=== PATIENT | female | born 1995 | race Caucasian/White ===

== ENCOUNTER 2020-03-15 07:27 | Outpatient (CLI) | payer BC, SELFPAY ==
[2020-03-15 08:14] LABS: Cholesterol 149 mg/dL (0-200); HDL Direct 33 mg/dL; Triglycerides 148 mg/dL (<150)
[2020-03-15 09:54] LABS: LDL Cholesterol Direct 94 mg/dL
[2020-03-18 04:12] LABS: Insulin Level Total 39.7 uIU/mL (<=19.6)
[2020-03-19 14:14] LABS: DHEA-Sulfate 207 mcg/dL (18-391)
[2020-03-19 16:03] LABS: Testosterone Total 30 ng/dL (2-45)
[2020-03-21 05:24] LABS: FSH 5.1 mIU/mL (***); LH 3.8 mIU/mL (***)
== END 2020-03-15 07:28 | disposition home or self-care (01) ==
LOC: ANHLAB 07:29
PROVIDERS: Visit Provider Obstetrics & Gynecology
DX: N92.6 Irregular menstruation, unspecified (principal)
CPT/HCPCS: 36415; 80061; 82627; 83001; 83002; 83525; 84403; 84436; 84443

== ENCOUNTER 2020-03-22 14:39 | Outpatient (CLI) | payer BC, SELFPAY ==
--- NOTE | ~2020-03-22 | US_ITS ---
EXAMINATION: US pelvic complete w TV DATE: 03/22/2020 15:23 INDICATION: Encounter for insertion of intrauterine contraceptive device. TECHNIQUE: Multiple transabdominal and transvaginal sonographic images of the pelvis were obtained. COMPARISON: None. FINDINGS: TRANSABDOMINAL ULTRASOUND: The uterus measures 7.4 x 2.2 x 3.9 cm. There is no free fluid in the pelvis. TRANSVAGINAL ULTRASOUND: The endometrial complex measures 5 mm in thickness. There is an intrauterine device in the lower uter ine segment. The right ovary measures 3.3 x 2.2 x 2.7 cm. The left ovary is not visualized. IMPRESSION: 1. Intrauterine device in abnormally low position. Reviewed, dictated and finalized at location A.
== END 2020-03-22 14:40 | disposition home or self-care (01) ==
PROVIDERS: Visit Provider Obstetrics & Gynecology
DX: Z30.430 Encounter for insertion of intrauterine contraceptive device (principal); T83.32XA Displacement of intrauterine contraceptive device, initial encounter
CPT/HCPCS: 76830; 76856

== ENCOUNTER 2020-05-01 07:37 | Outpatient (CLI) | payer BC, SELFPAY ==
[2020-05-01 08:16] LABS: Hemoglobin A1C 5.4 % (<5.7)
== END 2020-05-01 07:38 | disposition home or self-care (01) ==
PROVIDERS: Visit Provider Obstetrics & Gynecology
DX: N92.6 Irregular menstruation, unspecified (principal)
CPT/HCPCS: 36415; 83036

== ENCOUNTER 2020-06-26 13:21 | Emergency (ER) | payer BC, SELFPAY ==
--- NOTE | ~2020-06-26 | XR_ITS ---
EXAMINATION: XR chest 2V DATE: 06/26/2020 14:26 INDICATION: Chest pain. TECHNIQUE: Frontal and lateral views of the chest were obtained. COMPARISON: Chest single view 11/29/2019 FINDINGS: The chest demonstrates clear lungs without pneumonia, pleural effusion, or pneumothorax. Th e heart size is normal. Surgical clips in the right upper quadrant are likely from cholecystectomy. IMPRESSION: 1. No acute cardiopulmonary disease. Reviewed, dictated and finalized at location A. LE CHIPPER
--- NOTE | 2020-06-26 13:22 | ECG_ITS ---
Measurements Intervals [place] Rate: 109 P: 48 MO: 136 QRS: 26 QRSD: 98 T: 1 QT: 327 QTc: 442 Interpretive Statements SINUS TACHYCARDIA BORDERLINE ST-T WAVE ABNORMALITY- INFERIOR LEADS ABNORMAL ECG Electronically Signed On 06-26-2020 13:43:38 ADMISSIONS SPECIALIST by Jean Vasquez D.O.
[2020-06-26 13:26] VITALS: BP 144/98; PULSE 113; RESP 26; TEMP 36.1; O2SAT 99
[2020-06-26 13:31] VITALS: PULSE 105
--- NOTE | 2020-06-26 13:36 | ED.CHESTPAIN ---
HPI - Chest Pain General Chief Complaint: Chest Pain Stated Complaint: chest pain and htn Time Seen by Provider: 06/26/20 13:36 Source: patient and family Mode of arrival: ambulatory Limitations: no limitations History of Present Illness HPI narrative: Patient is a 24-year-old female who presents from her place of work for evaluation of chest pain and palpitations. Patient states that she was at work and had finished eating lunch when she suddenly felt her heart beating rapidly. She had some mild, aching chest pain which she states she has intermittently since October 2019. Patient recently moved to this area from [place], [place] and has not established with a primary care physician. She does take control. She had a history of Covid in January but recovered uneventfully and did not require hospitalization. No current chest pain or palpitations in the ER. She states these resolved quite quickly while she was being wheeled over here. Patient works for a [employer] who is located in the hospital. Patient denies any leg swelling or leg pain. No recent car or air travel. Related Data Home Medications Medication Instructions Recorded Confirmed cetirizine 10 mg capsule 10 mg PO DAILY 03/12/20 05/31/20 Allergies Allergy/AdvReac Type Severity Reaction Status Date / Time No Known Allergies Allergy Verified 06/26/20 13:21 Review of Systems Review of Systems: Narrative: CONSTITUTIONAL: Denies fever, chills, or sweats. EYES: Denies visual changes, redness, or discharge. ENT: Denies rhinorrhea, congestion, sore throat, or otalgia. CARDIOVASCULAR: Denies current chest pain, palpitations, or edema. RESPIRATORY: Denies cough or dyspnea. GASTROINTESTINAL: Denies abdominal pain, nausea, vomiting, or diarrhea. GENITOURINARY: Denies dysuria or hematuria. SKIN: Denies rash or itching. MUSCULOSKELETAL: Denies back pain, joint pain, or myalgia. NEUROLOGIC: Denies headache, numbness, or weakness. [facility] Past Medical History Medical History Acid reflux Anxiety Depression Surgical History Surgical History History of cholecystectomy [place] teeth extracted Family History Family History Father Diabetes mellitus Mother Hypertension Social History Social History Smoking status: Never smoker Alcohol intake: current Gender identity (if verbalized by the patient): Female Exam Narrative: Exam Narrative: GENERAL: Awake, alert, conversant HEAD: Normocephalic, atraumatic. EYES: PERRLA and EOMI. ENT: Nares clear, no rhinorrhea or epistaxis. Mucous membranes moist. NECK: Supple. CHEST: No respiratory distress, breathing even and non labored, mild chest wall tenderness HEART: Tachycardia rate, sinus rhythm ABDOMEN:Non distended, non tender EXTREMITIES: Normal range of motion. No edema. No calf swelling or leg pain. SKIN: Warm, dry, no rash. NEURO:No focal deficits. Alert and oriented x3 Course Vital Signs Vital signs: Vital Signs Temperature 36.1 C L 06/26/20 13:26 Pulse Rate 113 H 06/26/20 13:26 Respiratory Rate 26 H 06/26/20 13:26 Blood Pressure 144/98 H 06/26/20 13:26 Pulse Oximetry 99 06/26/20 13:26 Temperature 36.1 C L 06/26/20 13:26 Pulse Rate 110 H 06/26/20 17:14 Respiratory Rate 20 06/26/20 17:14 Blood Pressure 104/81 06/26/20 17:14 Pulse Oximetry 98 06/26/20 17:14 MDM - Chest Pain MDM Narrative Medical decision making narrative: Patient presenting for evaluation of chest pain and palpitations. At the time of assessment, no severe pain. Patient is mildly tachycardic. No hypoxia. No increased work of breathing or signs of respiratory distress. Lungs are clear. No murmurs, rubs or gallops. No calf swelling or calf pain. IV access obtained and labs were
[2020-06-26 14:02] LABS: Basophils Absolute Auto 0.1 K/mm3 (0.0-0.1); Basophils Percent Auto 0.5 % (0.2-1.2); Eosinophils Absolute Auto 0.2 K/mm3 (0-0.3); Eosinophils Percent Auto 1.7 % (0-4.4); Hematocrit 40.7 % (37.0-47.0); Hemoglobin 14.4 g/dL (12.0-15.0); Immature Granulocyte Absolute 0.05 K/mm3 (0.00-0.031); Immature Granulocyte Percent A 0.5 % (0-0.5); Lymphocytes Absolute Auto 3.68 K/mm3 (0.9-3.2); Lymphocytes Percent Auto 37.1 % (18.3-44.2); Mean Corpuscular HGB Conc 35.4 g/dl (32-36); Mean Corpuscular Hemoglobin 29.9 pg (26-34); Mean Corpuscular Volume 84.4 fl (80-100); Monocytes Percent Auto 9.7 % (2.6-8.5); Neutrophils Percent Auto 50.5 % (45.5-73.1); Platelet Count Result 395 k/mm3 (150-375); Red Blood Count 4.82 M/mm3 (4.2-5.4); Red Cell Distribution Width 12.2 % (11.5-14.5); White Blood Count 9.9 K/mm3 (4.5-10.0)
[2020-06-26 14:05] LABS: INR 0.9
[2020-06-26 14:06] LABS: Partial Thromboplastin Time 27.5 SECONDS (22.3-36.8)
[2020-06-26 14:10] LABS: Anion Gap 9 mmol/L (8-16); Blood Urea Nitrogen 9 mg/dL (7-17); Calcium 9.1 mg/dL (8.4-10.2); Carbon Dioxide 23 mmol/L (22-30); Chloride 105 mmol/L (98-107); Estimated CRCL calculation 170 ml/min; Estimated Glomerular Filt Rate > 60; Glucose 116 mg/dL (65-105); Potassium 3.7 mmol/L (3.4-5.0); Sodium 137 mmol/L (137-145)
[2020-06-26 14:21] LABS: Troponin I < 0.012 ng/mL (0.000-0.034)
[2020-06-26 14:23] LABS: D Dimer 0.27 ug/mL (<0.48)
[2020-06-26 14:28] VITALS: BP 160/97; PULSE 107; RESP 16; O2SAT 100
[2020-06-26] MEDS: ASPIRIN 81 MG CHEWABLE TABLET 324 MG PO (14:28)
[2020-06-26 15:28] VITALS: BP 126/65; PULSE 103; RESP 15; O2SAT 100
[2020-06-26 17:08] LABS: Troponin I < 0.012 ng/mL (0.000-0.034)
[2020-06-26 17:14] VITALS: BP 104/81; PULSE 110; RESP 20; O2SAT 98
[2020-06-26 17:35] VITALS: BP 129/81; PULSE 112; RESP 17; O2SAT 99
== END 2020-06-26 17:36 | disposition home or self-care (01) ==
PROVIDERS: Emergency Provider Emergency Medicine; PCP Internal Medicine
DX: R07.89 Other chest pain (principal); Z86.16 Personal history of COVID-19; K21.9 Gastro-esophageal reflux disease without esophagitis; R00.0 Tachycardia, unspecified
CPT/HCPCS: 36415; 71046; 80048; 84484; 85025; 85380; 85610; 85730; 93005; 99284; A9270

== ENCOUNTER → 2020-11-09 01:36 | Outpatient (CLI) | payer BC, SELFPAY ==
[2020-11-09 19:55] LABS: SARS-CoV-2 RNA PCR Negative
== END ==
PROVIDERS: PCP Internal Medicine; Visit Provider Internal Medicine Gastroenterology
DX: Z01.812 Encounter for preprocedural laboratory examination (principal); Z20.822 Contact with and (suspected) exposure to COVID-19
CPT/HCPCS: C9803; U0003; U0005

== ENCOUNTER 2020-11-13 01:37 | Day surgery (SDC) | payer BC, SELFPAY ==
[2020-11-01 13:26] VITALS: BMI 43.1
[2020-11-13 07:43] VITALS: BP 136/104; PULSE 100; RESP 20; TEMP 36.4; O2SAT 99; BMI 42.5
[2020-11-13] MEDS: LACTATED RINGERS 1,000 ML 150 ML IV CONT (07:56)
--- NOTE | 2020-11-13 08:13 | P.PNAN_ITS ---
Anes - Initial Pre Proc Eval Procedure: Operation Date: 11/13/20 08:30 Proposed Procedures p Esophagogastroduodenoscopy - Otoniel Cordon MD Date/Time: 11/13/20 08:13 Surgeon: Otoniel Cordon MD Pre Op Diagnosis: GERD Patient Data Age: 25 Gender: F Height: 5 ft 7 in Weight: 123 kg Last Vital Signs Temp 97.6 F 11/13/20 07:43 Pulse 100 11/13/20 07:43 Resp 20 11/13/20 07:43 BP 136/104 H 11/13/20 07:43 Pulse Ox 99 11/13/20 07:43 Allergies Allergy/AdvReac Type Severity Reaction Status Date / Time No Known Allergies Allergy Verified 11/13/20 07:42 Home Medications Medication Instructions Recorded Confirmed Type norethindrone 1 mg-ethinyl 1 tablet PO DAILY #3 packet 04/26/20 11/13/20 Rx estradiol 10 mcg (24)-iron 10 mcg(2) tablet chuckydha root extract 300 mg 300 mg PO BID cap 10/25/20 11/13/20 History capsule multivitamin 1 tablet PO DAILY 10/25/20 11/13/20 History pantoprazole 40 mg tablet,delayed 40 mg PO BID #180 tablet 10/25/20 11/13/20 Rx release temazepam 30 mg PO DAILY 11/01/20 11/13/20 History atomoxetine 40 mg capsule 40 mg PO DAILY #30 cap 11/08/20 11/13/20 Rx Patient hx anesthesia problems: none Family hx anesthesia problems: none PMFSH Past Medical History Medical History Acid reflux Anxiety Attention Deficit Hyperactivity Disorder (ADHD) Depression Morbid obesity with BMI of 40.0-44.9, adult Sleep disorder Surgical History Surgical History History of cholecystectomy [place] teeth extracted Family History Family History Father Diabetes mellitus Mother Hypertension Social History Social History Smoking status: Never smoker Second hand tobacco smoke exposure: No Alcohol intake: current Drinks per week: 1 Living arrangements: with family Gender identity (if verbalized by the patient): Female Spiritual care concerns: No Anes - Eval Final PreProcedure Day of Procedure 11/13/20 08:13 Patient weight: morbidly obese Heart: regular rate and rhythm Lungs: clear to auscultation Airway: Mallampati scale class II Neurological: alert and oriented Last oral intake: >/= 8 hours ASA classification: III Emergent: no Anesthetic plan: proceed Anesthesia type and monitoring: general GIVS and standard monitoring Informed Consent: The patient's anesthetic plan and its attendant risks and benefits were discussed with the patient/family/POA. Questions were solicited and answers provided to the satisfaction of the patient/family/POA.
--- NOTE | 2020-11-13 08:29 | PM.HPGS ---
History of Present Illness History of Present Illness Consent: Risks, benefits, and alternatives have been discussed and questions answered. Patient agrees to proceed with procedure. Chief complaint: GERD Narrative: Karla Campbell is a 25 year old female with non-cardiac chest pain and gerd, using protonix bid with some relief, never had egd Review of Systems Constitutional: Constitutional: Denies headache(s) and Denies weakness Eyes: Eyes: Denies blurry vision ENT: Reports Normal hearing present, Denies headache(s) and Denies neck pain Cardiovascular: Cardiovascular: Denies chest pain and Denies dyspnea Respiratory: Respiratory: Denies dyspnea Gastrointestinal: Gastrointestinal: Reports no additional gastrointestinal complaints Genitourinary: Genitourinary: Denies dysuria Musculoskeletal: Musculoskeletal: Denies neck pain Integumentary/Breasts: Skin/Breast: Denies dry skin Neurologic: Reports Normal hearing present, Denies headache(s) and Denies weakness Psychiatric: Psychiatric: Denies anxiety Endocrine: Endocrine: Denies change in body appearance Hematologic/Lymphatic: Hematologic/Lymphatic: Denies easy bleeding Allergic/Immunologic: Allergic/Immunologic: Denies urticaria PMFSH Past Medical History Medical History (Updated 11/13/20 @ 08:29 by Otoniel Cordon MD) Acid reflux Anxiety Attention Deficit Hyperactivity Disorder (ADHD) Depression Morbid obesity with BMI of 40.0-44.9, adult Non-cardiac chest pain Sleep disorder Surgical History Surgical History History of cholecystectomy [place] teeth extracted Family History Family History Father Diabetes mellitus Mother Hypertension Social History Social History Smoking status: Never smoker Second hand tobacco smoke exposure: No Alcohol intake: current Drinks per week: 1 Living arrangements: with family Gender identity (if verbalized by the patient): Female Spiritual care concerns: No Meds Home Medications and Allergies Home Medications Medication Instructions Recorded Confirmed Type norethindrone 1 mg-ethinyl 1 tablet PO DAILY #3 packet 04/26/20 11/13/20 Rx estradiol 10 mcg (24)-iron 10 mcg(2) tablet ashwagandha root extract 300 mg 300 mg PO BID cap 10/25/20 11/13/20 History capsule multivitamin 1 tablet PO DAILY 10/25/20 11/13/20 History pantoprazole 40 mg tablet,delayed 40 mg PO BID #180 tablet 10/25/20 11/13/20 Rx release temazepam 30 mg PO DAILY 11/01/20 11/13/20 History atomoxetine 40 mg capsule 40 mg PO DAILY #30 cap 11/08/20 11/13/20 Rx Allergies Allergy/AdvReac Type Severity Reaction Status Date / Time No Known Allergies Allergy Verified 11/13/20 07:42 Vital Signs Vital Signs - 24 hr 11/13/20 07:43 Temperature 97.6 F Pulse Rate 100 Respiratory Rate 20 Blood Pressure 136/104 H Pulse Oximetry 99 Exam Const: General: comfortable and no acute distress HENMT: General nose exam: Normal nares present Eyes: General: appearance normal, both eyes and all related structures Neck: Neck: no JVD Resp: Auscultation: clear to auscultation bilaterally Cardio: Rate: regular rate Rhythm: regular rhythm GI: Inspection: non-distended GI Palp: Yes Soft to palpation Skin: General skin exam: normal color Neuro: General: gait normal Speech: normal speech Extrem: General: normal to inspection Psych: Mental Status: mental status grossly normal Assessment and Plan Assessment and plan (1) Chronic GERD: Code(s): K21.9 - Gastro-esophageal reflux disease without esophagitis Status: Acute Assessment and Plan: egd with bx (2) Non-cardiac chest pain: Code(s): R07.89 - Other chest pain Status: Acute
[2020-11-13] MEDS: BENZOCAINE (*SP) 60 ML SPRAY CAN (HURRICAINE) 1 SPRAY MUCOUS MEM (08:30)
[2020-11-13 08:40] VITALS: BP 140/90; PULSE 103; RESP 24; O2SAT 95
[2020-11-13 08:50] VITALS: BP 143/105; PULSE 85; RESP 23; O2SAT 98
[2020-11-13 09:00] VITALS: BP 139/92; PULSE 84; RESP 84; O2SAT 98
== END 2020-11-13 09:04 | disposition home or self-care (01) ==
PROVIDERS: PCP Internal Medicine; Visit Provider Internal Medicine Gastroenterology
PROC: 0DJ08ZZ Inspection of Upper Intestinal Tract, Via Natural or Artificial Opening Endoscopic (ICD-10-PCS; CPT 43235; principal; 2020-11-13 08:30)
DX: K21.9 Gastro-esophageal reflux disease without esophagitis (principal); K44.9 Diaphragmatic hernia without obstruction or gangrene; F41.9 Anxiety disorder, unspecified; F90.9 Attention-deficit hyperactivity disorder, unspecified type; E66.9 Obesity, unspecified; Z90.49 Acquired absence of other specified parts of digestive tract
CPT/HCPCS: 43239; 88305; J2001; J2704; J7120

== ENCOUNTER 2021-07-02 06:52 | Outpatient (CLI) | payer BC, SELFPAY ==
[2021-07-02 08:36] LABS: Alanine Aminotransferase 37 U/L (4-35); Albumin Level 4.7 g/dL (3.5-5.1); Alkaline Phosphatase 62 U/L (38-126); Anion Gap 10 mmol/L (8-16); Aspartate Amino Transferase 26 U/L (14-36); Bilirubin,Total 0.6 mg/dL (0.2-1.3); Blood Urea Nitrogen 10 mg/dL (7-17); Calcium 9.6 mg/dL (8.4-10.2); Carbon Dioxide 26 mmol/L (22-30); Chloride 104 mmol/L (98-107); Cholesterol 146 mg/dL (0-200); Estimated Glomerular Filt Rate > 60; Glucose 91 mg/dL (65-110); HDL Direct 38 mg/dL; Sodium 140 mmol/L (137-145); Triglycerides 165 mg/dL (<150)
[2021-07-02 08:47] LABS: LDL Cholesterol Direct 79 mg/dL
[2021-07-02 08:58] LABS: Hemoglobin A1C 5.2 % (<5.7)
== END 2021-07-02 06:53 | disposition home or self-care (01) ==
LOC: ANHLAB 06:54
PROVIDERS: PCP Internal Medicine; Visit Provider Nurse Practitioner
DX: E88.81 Metabolic syndrome and other insulin resistance (principal); Z13.220 Encounter for screening for lipoid disorders; G47.9 Sleep disorder, unspecified
CPT/HCPCS: 36415; 80053; 80061; 83036; 84443

== ENCOUNTER 2021-08-14 06:58 | Outpatient (CLI) | payer BC, SELFPAY ==
[2021-08-16 03:25] LABS: Insulin Level Total 29.1 uIU/mL (<=19.6)
[2021-08-16 06:11] LABS: FSH 6.5 mIU/mL (***); LH 7.9 mIU/mL (***); Progesterone 0.5 ng/mL (***); Prolactin 8.6 ng/mL (***)
[2021-08-17 11:15] LABS: Testosterone Total 37 ng/dL (2-45)
== END 2021-08-14 06:59 | disposition home or self-care (01) ==
LOC: ANHLAB 07:00
PROVIDERS: PCP Internal Medicine; Visit Provider Obstetrics & Gynecology
DX: N92.6 Irregular menstruation, unspecified (principal)
CPT/HCPCS: 36415; 83001; 83002; 83525; 84144; 84146; 84403

== ENCOUNTER 2021-12-01 12:16 | Outpatient (CLI) | payer OTHER, SELFPAY ==
[2021-12-01 20:09] LABS: Hemoglobin A1C 5.2 % (<5.7)
[2021-12-03 04:49] LABS: LH 10.6 mIU/mL (***); Progesterone 0.5 ng/mL (***)
[2021-12-04 23:53] LABS: Testosterone Total 33 ng/dL (2-45)
[2021-12-05 06:32] LABS: Insulin Level Total 32.5 uIU/mL (<=19.6)
== END 2021-12-01 12:17 | disposition home or self-care (01) ==
PROVIDERS: PCP Internal Medicine; Visit Provider Obstetrics & Gynecology
DX: N92.1 Excessive and frequent menstruation with irregular cycle (principal); E88.81 Metabolic syndrome and other insulin resistance
CPT/HCPCS: 36415; 83001; 83002; 83036; 83498; 83525; 84144; 84403

== ENCOUNTER 2022-03-30 06:36 | Outpatient (CLI) | payer OTHER, SELFPAY ==
[2022-04-01 15:00] LABS: Progesterone 0.5 ng/mL (***)
== END 2022-03-30 06:37 | disposition home or self-care (01) ==
LOC: ANHLAB 06:38
PROVIDERS: PCP Internal Medicine; Visit Provider Obstetrics & Gynecology
DX: N92.6 Irregular menstruation, unspecified (principal)
CPT/HCPCS: 36415; 84144

== ENCOUNTER 2022-05-25 10:09 | Emergency (ER) | payer OTHER, SELFPAY ==
[2022-05-25 10:51] VITALS: BP 143/87; PULSE 111; RESP 18; TEMP 36.4; O2SAT 98
--- NOTE | 2022-05-25 11:28 | ED.URI ---
HPI - URI/Sore Throat General Chief Complaint: Upper Respiratory Infection Stated Complaint: congestion,sorethroat Time Seen by Provider: 05/25/22 11:21 Source: patient Mode of arrival: ambulatory Limitations: no limitations History of Present Illness HPI Narrative: Patient presents today with a 2 day history of sore throat, rhinorrhea, congestion, bilateral ear pain, headache. Denies shortness of breath or fever. Currently rates her pain 2/10 and has been taking DayQuil, NyQuil, and Mucinex without much relief. Related Data Home Medications Medication Instructions Recorded Confirmed prenat.vits,jose f,lvu-[id number] 1 tablet PO DAILY 10/27/21 05/25/22 Allergies Allergy/AdvReac Type Severity Reaction Status Date / Time No Known Allergies Allergy Verified 05/25/22 10:56 Review of Systems Review of Systems: CONSTITUTIONAL: Denies body aches, fever, chills, or sweats. EYES: Denies visual changes, redness, or discharge. ENT: + congestion, sore throat, rhinorrhea, bilateral ear pain CARDIOVASCULAR: Denies chest pain, palpitations, or edema. RESPIRATORY: Denies cough or dyspnea. GASTROINTESTINAL: Denies abdominal pain, nausea, vomiting, or diarrhea. GENITOURINARY: Denies dysuria or hematuria. SKIN: Denies rash, itching, or wounds. MUSCULOSKELETAL: Denies back pain, joint pain, or myalgia. NEUROLOGIC: Denies numbness, tingling, or weakness.+ headache PSYCH: Denies depression or anxiety. PMFSH Past Medical History Medical History Acid reflux Anxiety Attention Deficit Hyperactivity Disorder (ADHD) Depression Morbid obesity with BMI of 40.0-44.9, adult Non-cardiac chest pain Sleep disorder Surgical History Surgical History History of cholecystectomy [place] teeth extracted Family History Family History Mother Hypertension Father Diabetes mellitus Anxiety Mother Hypertension Grandparent Diabetes mellitus Hypertension Grandparent Heart disease Social History Social History Smoking status: Never smoker Second hand tobacco smoke exposure: No Alcohol intake: current Drinks per week: 1 Substance use: never Substance use type: does not use Lack of Transportation: No Lack of Food: Never True Current Housing: I Have Housing Concerned About Future Housing: No Difficulty Paying Gas/Electric Bills: No Difficulty Paying for Meds: No Currently Unemployed: No Education: Trade/Vocational Certificate Difficulty w/ Childcare or Family Care: No Gender identity (if verbalized by the patient): Female Spiritual care concerns: No Comments At time of signature, I have reviewed and agree with nursing past medical, surgical, social and family history unless otherwise noted. Please see nursing chart for further information. There is no relevant family history pertinent to the presenting complaint Exam Narrative: GENERAL: Well-appearing, well-nourished, and in no acute distress. HEAD: Normocephalic, atraumatic. EYES: EOMI. No redness or drainage. Conjunctivae normal. ENT: Mucous membranes pink and moist. Nares congested. No rhinorrhea. TMs normal bilaterally. Throat mildly erythematous without edema or exudate. Uvula midline. NECK: Normal AROM. Supple. No lymphadenopathy. CHEST: No respiratory distress. Clear to auscultation. HEART: Regular rate and rhythm. No murmur appreciated. Normal peripheral pulses. EXTREMITIES: Normal range of motion. No edema. SKIN: Warm, dry, no rash. Capillary refill normal. Normal skin turgor. NEURO: No focal deficits. Alert and oriented x3. Gait steady. PSYCH: Normal affect. No signs of depression or anxiety. Course Course Level of Care: Express Care Visit Vital Signs Vital signs: Vital Signs Ox
== END 2022-05-25 11:35 | disposition home or self-care (01) ==
PROVIDERS: Emergency Provider Nurse Practitioner; PCP Nurse Practitioner
DX: J06.9 Acute upper respiratory infection, unspecified (principal); K21.9 Gastro-esophageal reflux disease without esophagitis; E66.01 Morbid (severe) obesity due to excess calories; Z68.41 Body mass index [BMI] 40.0-44.9, adult
CPT/HCPCS: 99211; G0463

== ENCOUNTER 2022-05-28 11:59 | Outpatient (CLI) | payer OTHER, SELFPAY ==
[2022-05-31 14:39] LABS: Progesterone 9.5 ng/mL (***)
== END 2022-05-28 12:00 | disposition home or self-care (01) ==
LOC: ANHLAB 11:59
PROVIDERS: PCP Nurse Practitioner; Visit Provider Obstetrics & Gynecology
DX: Z32.01 Encounter for pregnancy test, result positive (principal)
CPT/HCPCS: 36415; 84144; 84702

== ENCOUNTER 2022-05-30 07:09 | Outpatient (CLI) | payer OTHER, SELFPAY | END 2022-05-30 07:10 | disposition home or self-care (01) | PROVIDERS: PCP Nurse Practitioner; Visit Provider Obstetrics & Gynecology | DX: Z32.01 Encounter for pregnancy test, result positive (principal) | CPT/HCPCS: 36415; 84702 ==

== ENCOUNTER 2022-06-04 15:47 | Outpatient (CLI) | payer OTHER, SELFPAY ==
--- NOTE | ~2022-06-04 | US_ITS ---
EXAMINATION: US OB <=14 wk fetus w TV DATE: 06/04/2022 16:57 INDICATION: with inconclusive viability during first trimester TECHNIQUE: Real-time pelvic ultrasound utilizing both a transvaginal and transabdominal probe was pe rformed. The interpreting radiologist was not present for the study. COMPARISON: None. FINDINGS: The uterus measures 7.1 x 3.9 x 4.3 cm. There is an intrauterine gestational sac with a 3 mm yolk sa c but no discernible pole yet evident. The mean sac diameter measures 12 mm, which correlates w ith an estimated gestational age of 6 weeks and 0 days. The right ovary measures 3.7 x 2.6 x 2.4 cm. The left ovary measures 4.1 x 2.2 x 2.5 cm. Vascular ana paula w with arterial waveforms identified in both ovaries on color Doppler. There is no free fluid in the pelvis. IMPRESSION: 1. Single intrauterine gestational sac with yolk sac but no evident pole which could be due to early stage of . 2. Gestational age by ultrasound based upon mean sac diameter of 6 weeks 0 day(s) +/- 4 day(s) with ultrasound estimated date of delivery (BONNY) of 01/28/2023. Reviewed, dictated and finalized at location A. ING HOUSE SUPERVISOR IMPRESSION: 1. Single intrauterine gestational sac with yolk sac but no evident pole which could be due to early stage of . 2. Gestational age by ultrasound based upon mean sac diameter of 6 weeks 0 day (s) +/- 4 day(s) with ultrasound estimated date of delivery (BONNY) of 01/28/2023.
== END 2022-06-04 15:48 | disposition home or self-care (01) ==
LOC: ANHIMG 15:49
PROVIDERS: PCP Nurse Practitioner; Visit Provider Obstetrics & Gynecology
DX: O36.80X0 Pregnancy with inconclusive fetal viability, not applicable or unspecified (principal); Z3A.01 Less than 8 weeks gestation of pregnancy
CPT/HCPCS: 76801; 76817

== ENCOUNTER 2022-06-24 08:04 | Outpatient (CLI) | payer OTHER, SELFPAY ==
[2022-06-26 09:35] LABS: PCP NEGATIVE ng/mL (<25)
[2022-06-30 14:26] LABS: Marijuana Metabolites Negative
[2022-06-30 14:27] LABS: Amphetamines Negative; Barbiturates Negative; Benzodiazepines Negative; Cocaine Metabolites Negative
== END 2022-06-24 08:05 | disposition home or self-care (01) ==
LOC: ANHLAB 08:05
PROVIDERS: PCP Nurse Practitioner; Visit Provider Nurse Practitioner
DX: Z51.81 Encounter for therapeutic drug level monitoring (principal); Z79.899 Other long term (current) drug therapy
CPT/HCPCS: 80307

== ENCOUNTER 2022-06-29 15:30 | Outpatient (CLI) | payer OTHER, SELFPAY ==
--- NOTE | ~2022-06-29 | US_ITS ---
EXAMINATION: US OB <=14 wk fetus w TV DATE: 06/29/2022 19:03 INDICATION: viability assessment during first trimester TECHNIQUE: Real-time pelvic transabdominal and transvaginal ultrasound was performed. COMPARISON: 06/04/2022 FINDINGS: The uterus measures 9.1 x 5.6 x 6.6 cm. There is an intrauterine gestational sac. There is a 13 mm x 7 mm fluid collection adjacent to the gestational sac. A yolk sac is identified. hea rt motion is identified measuring 171 beats per minute (bpm) by M-mode Doppler. The crown rump length measures 2.5 cm, which correlates with an estimated gestational age of 9 weeks and 1 day(s) (+ /-) 6 day(s). The right ovary measures 3.2 x 2.1 x 2.3 cm. The left ovary measures 4.0 x 1.9 x 1.6 cm. There is nor mal vascular flow in the ovaries. There is no free fluid in the pelvis. IMPRESSION: 1. Live intrauterine with an estimated gestational age of 9 weeks and 1 day(s) (+/-) 6 day( s) and an estimated delivery date of 01/31/2023. 2. Small subchorionic hematoma. Reviewed, dictated and finalized at location L. GE ENTRY CLERK IMPRESSION: 1. Live intrauterine with an estimated gestational age of 9 weeks and 1 day(s) (+/-) 6 day(s) and an estimated delivery date of 01/31/2023. 2. Small subchorionic hematoma.
== END 2022-06-29 15:31 | disposition home or self-care (01) ==
LOC: ANHIMG 15:31
PROVIDERS: PCP Nurse Practitioner; Visit Provider Obstetrics & Gynecology
DX: O36.80X0 Pregnancy with inconclusive fetal viability, not applicable or unspecified (principal); Z3A.09 9 weeks gestation of pregnancy
CPT/HCPCS: 76801; 76817

== ENCOUNTER 2022-07-08 08:56 | Outpatient (CLI) | payer OTHER, SELFPAY ==
[2022-07-08 09:51] LABS: Basophils Percent Auto 0.3 % (0.2-1.2); Eosinophils Absolute Auto 0.1 K/mm3 (0-0.3); Eosinophils Percent Auto 0.9 % (0-4.4); Hemoglobin 13.2 g/dL (12.0-15.0); Immature Granulocyte Absolute 0.03 K/mm3 (0.00-0.031); Immature Granulocyte Percent A 0.3 % (0-0.5); Lymphocytes Absolute Auto 2.21 K/mm3 (0.9-3.2); Mean Corpuscular HGB Conc 33.8 g/dl (32-36); Mean Corpuscular Hemoglobin 28.3 pg (26-34); Mean Corpuscular Volume 83.5 fl (80-100); Mean Platelet Volume 9.1 fl (7.4-10.4); Monocytes Absolute Auto 0.4 K/mm3 (0.1-0.6); Monocytes Percent Auto 4.5 % (2.6-8.5); Neutrophils Absolute Auto 6.1 K/mm3 (1.3-6.7); Platelet Count Result 378 k/mm3 (150-375); Red Blood Count 4.67 M/mm3 (4.2-5.4); Red Cell Distribution Width 12.6 % (11.5-14.5); White Blood Count 8.8 K/mm3 (4.5-10.0)
[2022-07-08 10:13] LABS: Appearance Urine Clear (Clear); Bilirubin Urine Negative (Negative); Blood Urine Negative (Negative); Color Urine Yellow (Yellow); Glucose Urine UA Negative (Negative); Ketones Urine Negative (Negative); Leukocyte Esterase Ur Negative LEU/UL (NEGATIVE); Nitrate Urine Negative (Negative); Protein Urine Negative (Negative); Specific Grav Ur 1.015 (1.001-1.035); Urobilinogen Urine 0.2 mg/dL (<2.0)
[2022-07-08 10:20] LABS: Vitamin D 25 Hydroxy 31.8 ng/mL
[2022-07-08 10:30] LABS: Add Urine Microscopic? NO
[2022-07-08 10:37] LABS: Hepatitis B Surface Antigen Negative (Negative); Rubella IgG Antibody 4.9 IU/ML
[2022-07-08 10:43] LABS: HIV 1/2 Ab P24 Ag Result Negative (Negative)
[2022-07-08 11:56] LABS: Hepatitis C Virus Antibody Negative (Negative)
[2022-07-08 16:51] LABS: Rapid Plasma Reagin Non-Reactive (NonReactive)
[2022-07-13 08:45] LABS: Hemoglobin 13.4 g/dL (11.7-15.5); MCH 28.7 pg (27.0-33.0); MCV 87.8 fL (80.0-100.0); RDW 13.2 % (11.0-15.0); Red Blood Cell Count 4.67 Mill/uL (3.80-5.10)
[2022-07-16 18:53] LABS: CF Result NEGATIVE (NEGATIVE); Ethnicity CAUCASIAN
== END 2022-07-08 08:57 | disposition home or self-care (01) ==
PROVIDERS: PCP Nurse Practitioner; Visit Provider Obstetrics & Gynecology
DX: Z34.90 Encounter for supervision of normal pregnancy, unspecified, unspecified trimester (principal); Z3A.00 Weeks of gestation of pregnancy not specified
CPT/HCPCS: 36415; 81003; 81220; 81243; 82306; 83021; 84443; 85025; 86592; 86703; 86762; 86787; 86803; 86850; 86900; 86901; 87086; 87088; 87340; G0432

== ENCOUNTER 2022-08-14 08:12 | Outpatient (CLI) | payer OTHER, SELFPAY ==
[2022-08-14 10:23] LABS: Hemoglobin A1C 4.9 % (<5.7)
[2022-08-14 10:29] LABS: Glucose 1 Hour PP 50gm Dose 137 mg/dL
== END 2022-08-14 08:13 | disposition home or self-care (01) ==
LOC: ANHLAB 08:14
PROVIDERS: PCP Nurse Practitioner; Visit Provider Obstetrics & Gynecology
DX: Z34.90 Encounter for supervision of normal pregnancy, unspecified, unspecified trimester (principal); Z3A.00 Weeks of gestation of pregnancy not specified
CPT/HCPCS: 36415; 82947; 83036

== ENCOUNTER 2022-08-28 07:57 | Outpatient (CLI) | payer OTHER, SELFPAY ==
[2022-08-28 08:38] LABS: Glucose Fasting Gestational 87 mg/dL (>/=95)
[2022-08-28 10:01] LABS: Glucose 1 Hour Gest 147 mg/dL (>/=180)
[2022-08-28 11:54] LABS: Glucose 2 Hour Gest 176 mg/dL (>/= 155)
[2022-08-28 12:15] LABS: Glucose 3 Hour Gest 107 mg/dL (>/=140)
== END 2022-08-28 07:58 | disposition home or self-care (01) ==
PROVIDERS: PCP Nurse Practitioner; Visit Provider Obstetrics & Gynecology
DX: O99.810 Abnormal glucose complicating pregnancy (principal); Z3A.00 Weeks of gestation of pregnancy not specified
CPT/HCPCS: 36415; 82951; 82952

== ENCOUNTER 2022-09-14 21:10 | Observation (INO) | payer OTHER, SELFPAY ==
--- NOTE | 2022-09-14 21:10 | PC.NURSE ---
Dr Berumen called with orders for patient. IV d5LR bulos 100ml then a continuous d5LR 125 ml/hr. Phenegran 12.5 mg IV PRN GI cocktail IV tylenol 1 mg PRN CBC, CMP Keep overnight and keep NPO after GI cocktail. GI consult in the morning.
[2022-09-14 22:00] VITALS: RESP 16; TEMP 36.5; BMI 39.3
[2022-09-14 22:18] LABS: Hematocrit 38.6 % (37.0-47.0); Hemoglobin 13.3 g/dL (12.0-15.0); Mean Corpuscular HGB Conc 34.5 g/dl (32-36); Mean Corpuscular Hemoglobin 29.4 pg (26-34); Mean Corpuscular Volume 85.2 fl (80-100); Mean Platelet Volume 8.8 fl (7.4-10.4); Platelet Count Result 332 k/mm3 (150-375); Red Blood Count 4.53 M/mm3 (4.2-5.4); Red Cell Distribution Width 13.2 % (11.5-14.5); White Blood Count 15.6 K/mm3 (4.5-10.0)
[2022-09-14] MEDS: BELLADONNA ALK/PHENOB ELIX 10 ML, MAG HYDROX/ALUMINUM HYD/SIMETH 30 ML, LIDOCAINE HCL 2... PO (22:18)
[2022-09-14] MEDS: DEXTROSE 5%/LACTATED RINGERS 1,000 ML 999 ML IV CONT (22:18)
[2022-09-14 22:27] LABS: Alanine Aminotransferase 35 U/L (6-35); Alkaline Phosphatase 67 U/L (38-126); Anion Gap 10 mmol/L (8-16); Aspartate Amino Transferase 22 U/L (14-36); Bilirubin,Total 0.7 mg/dL (0.2-1.3); Blood Urea Nitrogen 6 mg/dL (7-17); Calcium 8.8 mg/dL (8.4-10.2); Carbon Dioxide 19 mmol/L (22-30); Chloride 106 mmol/L (98-107); Estimated Glomerular Filt Rate > 60; Glucose 112 mg/dL (65-110); Potassium 3.4 mmol/L (3.4-5.0); Sodium 135 mmol/L (137-145)
--- NOTE | 2022-09-14 22:30 | OBADM ---
This patient, Karla Campbell, admitted to the OB room OB Post 116 for observation. Patient/family oriented to hospital policies and general routines including ID bracelet, bed and alarms, visiting hours, pain management, procedures, bathroom and other care routines, personal items, smoking policy, room service/diet, and visiting hours. Patient/Family are encouraged to report perceived risks to care and to ask questions if they do not understand what they are told or what they should do.
[2022-09-14] MEDS: PROMETHAZINE HCL 25 MG/ML AMPUL 12.5 MG IV PUSH (22:40)
[2022-09-14 22:59] VITALS: BP 96/54; PULSE 96
[2022-09-14 23:00] VITALS: BP 117/62; PULSE 96
--- NOTE | 2022-09-14 23:11 | PC.NURSE ---
heart tones doppled at 160. Pt denies contractions
--- NOTE | 2022-09-14 23:39 | PC.NURSE ---
Pt vomiting. 200 ml of yellow bile. No blood noted.
[2022-09-14] MEDS: DEXTROSE 5%/LACTATED RINGERS 1,000 ML 125 ML IV CONT (23:52)
--- NOTE | 2022-09-14 23:55 | PC.NURSE ---
Pt continuing to be very nauseous. Called Dr. Berumen. Orders for mg zofran PRN Q4 hours
[2022-09-14] MEDS: ONDANSETRON INJ 4 MG/2 ML VIAL IV PUSH (23:57)
--- NOTE | 2022-09-15 00:50 | PC.NURSE ---
Pt vomiting 100 ml of bile with a few bloody speckles
--- NOTE | 2022-09-15 01:09 | PC.NURSE ---
Spoke with Dr. Berumen about patients unresolved nausea. Orders for suppository compazine 25 mg
[2022-09-15] MEDS: PROCHLORPERAZINE 25 MG SUPP.RECT RECTAL ×3 (01:34→17:48)
--- NOTE | 2022-09-15 01:41 | PC.NURSE ---
150 of dark yellow bile vomited. No blood noted. Small amount of diarrhea.
--- NOTE | 2022-09-15 02:07 | PC.NURSE ---
75 ml of bile vomited with bright red blood speckles in it.
[2022-09-15 02:14] VITALS: TEMP 36.5
[2022-09-15] MEDS: PROMETHAZINE HCL 25 MG/ML AMPUL 12.5 MG IV PUSH (02:30)
[2022-09-15] MEDS: ONDANSETRON INJ 4 MG/2 ML VIAL IV PUSH ×2 (03:51→07:44)
[2022-09-15] MEDS: DEXTROSE 5%/LACTATED RINGERS 1,000 ML 125 ML IV CONT (07:42)
--- NOTE | 2022-09-15 07:59 | PM.IMHP ---
H&P: [facility] History of Present Illness Date/Time: 09/15/22 07:59 Chief Complaint: nausea vomiting abdominal pain Narrative: She is a G1 at 20 weeks who presented with spontaneous upper abdominal pain and nausea after eating a hot dog last afternoon. Pain and nausea persisted at home and emesis. She does have history of severe GERD and has recently been evaluated by GI for hemoptysis. She is on multiple reflux medications. Pain and emesis persisted into the evening and she was admitted. Review of Systems Review of Systems: All systems reviewed & are unremarkable except as noted in HPI and below Constitutional: Constitutional: Reports no additional constitutional complaints Eyes: Eyes: Reports no additional eye complaints Cardiovascular: Cardiovascular: Reports no additional cardiovascular complaints Respiratory: Respiratory: Reports no additional respiratory complaints Gastrointestinal: Gastrointestinal: Reports no additional gastrointestinal complaints Genitourinary: Genitourinary: Reports no additional female genitourinary complaints and Reports as per HPI Integumentary/Breasts: Skin/Breast: Reports system reviewed and no additional complaints, except as docu Neurologic: Reports system reviewed and no additional complaints, except as documented Psychiatric: Psychiatric: Reports no additional psychiatric complaints Hematologic/Lymphatic: Hematologic/Lymphatic: Reports no additional hematologic/lymphatic complaints [facility] Past Medical History Medical History (Updated 09/02/22 @ 10:08 by Yelena Oh APRN) Acid reflux Anxiety Attention Deficit Hyperactivity Disorder (ADHD) Depression Deviated nasal septum Dysphagia GERD (gastroesophageal reflux disease) Hematemesis Morbid obesity with BMI of 40.0-44.9, adult Nausea and vomiting during Non-cardiac chest pain Sleep disorder TMJ (temporomandibular joint disorder) Surgical History Surgical History History of cholecystectomy [place] teeth extracted Family History Family History Mother Hypertension Father Diabetes mellitus Anxiety Mother Hypertension Grandparent Diabetes mellitus Hypertension Grandparent Heart disease Social History Social History Smoking status: Never smoker Second hand tobacco smoke exposure: No Alcohol intake: current Drinks per week: 1 Alcohol use details: not during Substance use: never Substance use type: does not use Lack of Transportation: No Lack of Food: Never True Current Housing: I Have Housing Concerned About Future Housing: No Difficulty Paying Gas/Electric Bills: No Difficulty Paying for Meds: No Currently Unemployed: No Education: Trade/Vocational Certificate Difficulty w/ Childcare or Family Care: No Living arrangements: with family Gender identity (if verbalized by the patient): Female Spiritual care concerns: No Meds Home Medications and Allergies Home Medications Medication Instructions Recorded Confirmed Type pantoprazole 40 mg tablet,delayed 40 mg PO BID #180 tabs 03/23/22 09/14/22 Rx release dextroamphetamine-amphetamine 10 10 mg PO BID #60 tabs 07/08/22 09/14/22 Rx mg tablet (Adderall) vitamins no.85-iron 10 1 cap PO DAILY #30 caps 08/17/22 09/14/22 Rx mg-folate no.1 1 mg-dha 200 mg capsule (Prenate Pixie) sucralfate 1 gram tablet (Carafate) See Rx Instructions .Route 09/07/22 09/14/22 Rx .COMPLEX #120 tabs ondansetron 4 mg disintegrating 4 mg PO Q6H PRN nausea and 09/10/22 09/14/22 Rx tablet vomiting #30 tabs Allergies Allergy/AdvReac Type Severity Reaction Status Date / Time No Known Allergies Allergy Verified 09/14/22 20:53 Vital Signs Vital Signs - 24 hr 09/14/22 22:59 09/14/22 23:00 09/14/22 22:00 T
[2022-09-15 09:05] LABS: Amylase 52 U/L (30-110); Lipase 32 U/L (23-300)
--- NOTE | 2022-09-15 10:03 | PC.NURSE ---
Dr. Peterson professor of communication and writing for Dr. Ramos. Office notified of consult.
--- NOTE | 2022-09-15 13:00 | PC.NURSE ---
Dr. Jaeger at bedside and talked to patient. no procedure needed and okay to go home when pt feels better.
--- NOTE | 2022-09-15 13:03 | PC.NURSE ---
Dr. Berumen at bedside, advanced diet to full liquid. compazine supp every 6 hours ordered
--- NOTE | 2022-09-15 16:18 | PC.NURSE ---
called Dr. Berumen updated pt status. pt is able to keep full liquid down from lunch. Order received to discontinue IV fluid. keep observe if pt can keep food down.
--- NOTE | 2022-09-15 16:48 | WPDGICN ---
Assessment and Plan Assessment and plan (1) Nausea and vomiting during : Code(s): O21.9 - Vomiting of , unspecified Status: Acute Assessment and Plan: continue with antiemetics (2) Hematemesis: Code(s): K92.0 - Hematemesis Status: Acute Assessment and Plan: probably could be esophagitis, MWT but normal h/h i will continue with medical treatment- ppi and carafate. as long as h/h stable no need to proceed with egd plus she is she had egd 2 years ago (3) GERD (gastroesophageal reflux disease): Code(s): K21.9 - Gastro-esophageal reflux disease without esophagitis Status: Acute Assessment and Plan: ppi continue medical treatment (4) : Code(s): Z34.90 - Encounter for supervision of normal , unspecified, unspecified trimester Status: Acute GI Consult Note Consult date/time: 09/15/22 16:48 Reason for consult: n/v, hematemesis HPI: Karla Campbell is a 26 year old female who I met her in 2020 when I performed EGD, only small hiatal hernia, biopsies of esophagus/stomach/duodenum normal (indication was gerd and non cardiac chest pain- already using ppi). She is G1 at 20 weeks. She was just recently in the office because chronic nausea along with vomiting 2-3 times per week, normally acid bile with tinges of bright red blood mixed in.?She was started on carafate and her protonix was increased. She came here because noted again blood in emesis, admitted. Today she is feeling better and no more emesis. Hb 13 (stable). She is feeling better, still nauseous. No melena. Review of Systems Constitutional: Constitutional: Denies chills Eyes: Eyes: Denies blurry vision ENT: Reports Normal hearing present Cardiovascular: Cardiovascular: Denies leg edema Respiratory: Respiratory: Denies cough Gastrointestinal: Gastrointestinal: Reports nausea and Reports vomiting Genitourinary: Genitourinary: Denies hematuria Musculoskeletal: Musculoskeletal: Denies neck pain Neurologic: Denies confusion Psychiatric: Psychiatric: Denies behavioral changes [facility] Past Medical History Medical History (Updated 09/02/22 @ 10:08 by Yelena Oh, MADALYN) Acid reflux Anxiety Attention Deficit Hyperactivity Disorder (ADHD) Depression Deviated nasal septum Dysphagia GERD (gastroesophageal reflux disease) Hematemesis Morbid obesity with BMI of 40.0-44.9, adult Nausea and vomiting during Non-cardiac chest pain Sleep disorder TMJ (temporomandibular joint disorder) Surgical History Surgical History History of cholecystectomy [place] teeth extracted Family History Family History Mother Hypertension Father Diabetes mellitus Anxiety Mother Hypertension Grandparent Diabetes mellitus Hypertension Grandparent Heart disease Social History Social History Smoking status: Never smoker Second hand tobacco smoke exposure: No Alcohol intake: current Drinks per week: 1 Alcohol use details: not during Substance use: never Substance use type: does not use Lack of Transportation: No Lack of Food: Never True Current Housing: I Have Housing Concerned About Future Housing: No Difficulty Paying Gas/Electric Bills: No Difficulty Paying for Meds: No Currently Unemployed: No Education: Trade/Vocational Certificate Difficulty w/ Childcare or Family Care: No Living arrangements: with family Gender identity (if verbalized by the patient): Female Spiritual care concerns: No Meds Home Medications and Allergies Home Medications Medication Instructions Recorded Confirmed Type pantoprazole 40 mg tablet,delayed 40 mg PO BID #180 tabs 03/23/22 09/14/22 Rx release dextroamphetamine-
[2022-09-15 16:54] VITALS: PULSE 105; O2SAT 97
[2022-09-15 16:55] VITALS: BP 125/76; PULSE 104
[2022-09-15 17:01] VITALS: BP 125/76; PULSE 106; RESP 18; TEMP 36.6; O2SAT 97
--- NOTE | 2022-09-28 09:16 | PM.OBTRLD ---
OB - Triage/Final Diagnosis Visit Information Comments/Additional reasons for admission: I have assessed the risk for this patient, Karla Campbell, and determined that she would benefit from observation care. Evaluation Laboratory results: Laboratory Tests 09/14/22 09/14/22 09/15/22 22:10 22:10 08:35 WBC 15.6 H RBC 4.53 Hgb 13.3 Hct 38.6 MCV 85.2 MCH 29.4 MCHC 34.5 RDW 13.2 Plt Count 332 MPV 8.8 Sodium 135 L Potassium 3.4 Chloride 106 Carbon Dioxide 19 L Anion Gap 10 BUN 6 L Creatinine 0.50 L Estim Creat Clear Calc Not Reportable Estimated GFR > 60 Glucose 112 H Calcium 8.8 Total Bilirubin 0.7 AST 22 ALT 35 Alkaline Phosphatase 67 Total Protein 7.0 Albumin 4.0 Amylase 52 Lipase 32 Final Diagnosis (1) Nausea and vomiting during : Code(s): O21.9 - Vomiting of , unspecified Status: Acute (2) Gastroenteritis: Code(s): K52.9 - Noninfective gastroenteritis and colitis, unspecified Status: Acute (3) GERD (gastroesophageal reflux disease): Code(s): K21.9 - Gastro-esophageal reflux disease without esophagitis Status: Acute
== END 2022-09-15 17:45 | disposition home or self-care (01) ==
PROVIDERS: Admitting Provider Obstetrics & Gynecology; PCP Nurse Practitioner; Visit Provider Obstetrics & Gynecology
DX: O21.2 Late vomiting of pregnancy (principal); O26.892 Other specified pregnancy related conditions, second trimester; R10.9 Unspecified abdominal pain; K92.89 Other specified diseases of the digestive system; K21.9 Gastro-esophageal reflux disease without esophagitis; O99.612 Diseases of the digestive system complicating pregnancy, second trimester; K92.0 Hematemesis; Z3A.20 20 weeks gestation of pregnancy; Z79.899 Other long term (current) drug therapy
CPT/HCPCS: 36415; 80053; 82150; 83690; 85027; 96365; 96366; 96375; 96376; A9270; G0378; G0379; J0131; J2405; J2550; J7121

== ENCOUNTER 2022-10-16 07:09 | Outpatient (CLI) | payer OTHER, SELFPAY ==
[2022-10-16 07:43] LABS: Glucose Fasting Gestational 94 mg/dL (>/=95)
[2022-10-16 09:22] LABS: Glucose 1 Hour Gest 170 mg/dL (>/=180)
[2022-10-16 10:29] LABS: Glucose 2 Hour Gest 153 mg/dL (>/= 155)
[2022-10-16 11:16] LABS: Glucose 3 Hour Gest 154 mg/dL (>/=140)
== END 2022-10-16 07:10 | disposition home or self-care (01) ==
PROVIDERS: PCP Nurse Practitioner; Visit Provider Obstetrics & Gynecology
DX: O99.810 Abnormal glucose complicating pregnancy (principal); Z3A.00 Weeks of gestation of pregnancy not specified
CPT/HCPCS: 36415; 82951; 82952

== ENCOUNTER 2022-11-12 17:00 | Outpatient (CLI) | payer OTHER, SELFPAY ==
[2022-11-12 17:22] LABS: Hematocrit 32.4 % (37.0-47.0); Hemoglobin 10.5 g/dL (12.0-15.0); Mean Corpuscular HGB Conc 32.4 g/dl (32-36); Mean Corpuscular Hemoglobin 27.5 pg (26-34); Mean Corpuscular Volume 84.8 fl (80-100); Platelet Count Result 351 k/mm3 (150-375); Red Blood Count 3.82 M/mm3 (4.2-5.4); Red Cell Distribution Width 12.6 % (11.5-14.5); White Blood Count 11.5 K/mm3 (4.5-10.0)
== END 2022-11-12 17:01 | disposition home or self-care (01) ==
LOC: ANHLAB 17:01
PROVIDERS: PCP Nurse Practitioner; Visit Provider Obstetrics & Gynecology
DX: Z34.92 Encounter for supervision of normal pregnancy, unspecified, second trimester (principal)
CPT/HCPCS: 36415; 85027

== ENCOUNTER 2023-01-06 07:13 | Outpatient (CLI) | payer OTHER, SELFPAY ==
[2023-01-06 07:37] VITALS: BMI 40.7
[2023-01-06 08:15] LABS: Collection Time Urine 24 HOURS
[2023-01-06 08:56] LABS: Total Volume 24 Hour Urine 3000 ml
[2023-01-06 08:57] LABS: Specific Gravity Ur 1.015
[2023-01-06 09:25] LABS: Creatinine Clearance Urine 148.8 ml/min (75-125); Creatinine Urine 55.8 mg/dL; Patient Weight 260 Lbs; Total Protein Urine 24 Hr 330 mg/24hr (28-141); Total Protein Urine Random 11 mg/dL
== END 2023-01-06 07:14 | disposition home or self-care (01) ==
LOC: ANHOBOP 07:29
PROVIDERS: PCP Nurse Practitioner; Visit Provider Obstetrics & Gynecology
DX: Z34.90 Encounter for supervision of normal pregnancy, unspecified, unspecified trimester (principal); Z3A.00 Weeks of gestation of pregnancy not specified
CPT/HCPCS: 36415; 59025; 76819; 80053; 81001; 81050; 82570; 82575; 84156; 84550; 85027

== ENCOUNTER 2023-01-08 07:27 | Outpatient (RCR) | payer OTHER, SELFPAY ==
[2022-12-11 12:01] VITALS: BP 132/75; PULSE 105
[2022-12-18 09:23] VITALS: BP 134/74; PULSE 84
[2022-12-25 08:59] VITALS: BP 132/82; PULSE 79
[2023-01-01 10:18] VITALS: BP 136/82; PULSE 80
[2023-01-05 07:29] LABS: Hematocrit 36.3 % (37.0-47.0); Hemoglobin 12.1 g/dL (12.0-15.0); Mean Corpuscular HGB Conc 33.3 g/dl (32-36); Mean Corpuscular Hemoglobin 27.9 pg (26-34); Mean Corpuscular Volume 83.8 fl (80-100); Mean Platelet Volume 9.8 fl (7.4-10.4); Platelet Count Result 284 k/mm3 (150-375); Red Blood Count 4.33 M/mm3 (4.2-5.4); Red Cell Distribution Width 14.1 % (11.5-14.5); White Blood Count 7.9 K/mm3 (4.5-10.0)
[2023-01-05 07:38] LABS: Creatinine Urine 40.1 mg/dL; Total Protein Urine Random 13 mg/dL; Ur Ttl Prot Creatinine Ratio 0.32 mg/mg (0-0.20)
[2023-01-05 07:40] LABS: Alanine Aminotransferase 44 U/L (6-35); Albumin Level 3.4 g/dL (3.5-5.1); Alkaline Phosphatase 122 U/L (38-126); Anion Gap 7 mmol/L (8-16); Aspartate Amino Transferase 25 U/L (14-36); Bilirubin,Total 0.2 mg/dL (0.2-1.3); Blood Urea Nitrogen 10 mg/dL (7-17); Calcium 8.8 mg/dL (8.4-10.2); Carbon Dioxide 23 mmol/L (22-30); Chloride 106 mmol/L (98-107); Estimated Glomerular Filt Rate > 60; Glucose 99 mg/dL (65-110); Potassium 3.7 mmol/L (3.4-5.0); Sodium 136 mmol/L (137-145); Uric Acid 6.7 mg/dL (2.5-7.5)
[2023-01-05 07:52] LABS: Appearance Urine Clear (Clear); Bacteria Urine None Seen /hpf; Bilirubin Urine Negative (Negative); Blood Urine Negative (Negative); Color Urine Yellow (Yellow); Glucose Urine UA Negative (Negative); Ketones Urine Negative (Negative); Leukocyte Esterase Ur Trace LEU/UL (Negative); Nitrate Urine Negative (Negative); Non Pathogenic Casts 0-2; Protein Urine Negative (Negative); RBC Urine 0-2 /hpf (0-2); Specific Grav Ur 1.006 (1.001-1.035); Squamous Epithelial Cell Urine None seen /hpf (Few); Urobilinogen Urine 0.2 mg/dL (<2.0); WBC Urine 0-5 /hpf
[2023-01-05 08:03] VITALS: BP 138/94; PULSE 79
[2023-01-05 08:26] LABS: Add Urine Microscopic? YES
--- NOTE | ~2023-01-08 | US_ITS ---
EXAMINATION: US OB BPP wo non-stress DATE: 01/01/2023 09:47 INDICATION: Gestational diabetes, third trimester TECHNIQUE: Real-time pelvic ultrasound was performed. The interpreting radiologist was not present fo r the study. COMPARISON: 12/25/2022 FINDINGS: There is a single living fetus in vertex presentation. The placenta is posterior. heart rate is 144 beats per minute (bpm). Biophysical profile performed by the technologist: breathing (30 sec sustained breathing in 30 minutes): 2 out of 2 movement (3 gross body movements in 30 minutes): 2 out of 2 tone (one episode of itmdztq-ddwmxpvce-tldmuge limb movement): 2 out of 2 Amniotic fluid pocket (2 cm): 2 out of 2 Total score: 8 out of 8 IMPRESSION: 1. Single living fetus in vertex presentation. 2. Biophysical profile 8 out of 8. Reviewed, dictated and finalized at location B.
--- NOTE | ~2023-01-08 | US_ITS ---
EXAMINATION: US OB BPP wo non-stress DATE: 12/25/2022 08:55 INDICATION: Gestational diabetes. Third trimester. TECHNIQUE: Real-time pelvic ultrasound was performed. COMPARISON: Ultrasound 12/18/2022 FINDINGS: There is a single living fetus in vertex presentation. The placenta is posterior and fundal. h eart rate is 148 beats per minute (bpm). The deepest vertical pocket is 8.8 cm. Biophysical profile performed by the technologist: breathing (30 sec sustained breathing in 30 minutes): 2 out of 2 movement (3 gross body movements in 30 minutes): 2 out of 2 tone (one episode of sptkqeh-bfehiccpl-lrkstje limb movement): 2 out of 2 Amniotic fluid pocket (2 cm): 2 out of 2 Total score: 8 out of 8 IMPRESSION: 1. Single living fetus in vertex presentation. 2. Biophysical profile 8 out of 8. Reviewed, dictated and finalized at location A.
--- NOTE | ~2023-01-08 | US_ITS ---
EXAMINATION: US OB BPP wo non-stress DATE: 01/05/2023 08:11 CDT INDICATION: Gestational diabetes TECHNIQUE: Real-time transabdominal obstetric ultrasound. FINDINGS: 01/01/2023 There is a single living fetus in vertex presentation. The placenta is posterior without placenta pr evia. cardiac activity and movement is noted with a heart rate of 147 beats per minute. Biophysical profile: breathin of 2 movement: 2 of 2 tone: 2 of 2 Amniotic flud pocket: 2 of 2 Total score: 8 of 8 IMPRESSION: 1. Single living intrauterine in vertex presentation. 2: Total biophysical profile score of 8/8. Reviewed, dictated and finalized at location A.
--- NOTE | ~2023-01-08 | US_ITS ---
EXAMINATION: US OB BPP wo non-stress DATE: 12/18/2022 10:09 INDICATION: Gestational diabetes, third trimester TECHNIQUE: Real-time pelvic ultrasound was performed. The interpreting radiologist was not present fo r the study. COMPARISON: None. FINDINGS: There is a single living fetus in vertex presentation. The placenta is posterior. heart rate is 142 beats per minute (bpm). Biophysical profile performed by the technologist: breathing (30 sec sustained breathing in 30 minutes): 2 out of 2 movement (3 gross body movements in 30 minutes): 2 out of 2 tone (one episode of njocvcx-aahcwhvcl-mlhrusp limb movement): 2 out of 2 Amniotic fluid pocket (2 cm): 2 out of 2 Total score: 8 out of 8 IMPRESSION: 1. Single living fetus in vertex presentation. 2. Biophysical profile 8 out of 8. Reviewed, dictated and finalized at location B.
--- NOTE | ~2023-01-08 | US_ITS ---
EXAMINATION: US OB BPP wo non-stress DATE: 01/08/2023 08:31 INDICATION: Gestational diabetes. Third trimester. Preeclampsia. TECHNIQUE: Real-time pelvic ultrasound was performed. COMPARISON: Ultrasound 01/05/2023 FINDINGS: There is a single living fetus in vertex presentation. The placenta is posterior. heart rate i s 147 beats per minute (bpm). Biophysical profile performed by the technologist: breathing (30 sec sustained breathing in 30 minutes): 2 out of 2 movement (3 gross body movements in 30 minutes): 2 out of 2 tone (one episode of bjorhqb-vhbeurpto-skclpsg limb movement): 2 out of 2 Amniotic fluid pocket (2 cm): 2 out of 2 Total score: 8 out of 8 IMPRESSION: 1. Single living fetus in vertex presentation. 2. Biophysical profile 8 out of 8. Reviewed, dictated and finalized at location A.
[2023-01-08 08:05] LABS: Hematocrit 35.6 % (37.0-47.0); Hemoglobin 11.8 g/dL (12.0-15.0); Mean Corpuscular HGB Conc 33.1 g/dl (32-36); Mean Corpuscular Hemoglobin 27.4 pg (26-34); Mean Corpuscular Volume 82.8 fl (80-100); Mean Platelet Volume 10.1 fl (7.4-10.4); Platelet Count Result 273 k/mm3 (150-375); White Blood Count 8.1 K/mm3 (4.5-10.0)
[2023-01-08 08:20] LABS: Alanine Aminotransferase 43 U/L (6-35); Albumin Level 3.2 g/dL (3.5-5.1); Alkaline Phosphatase 133 U/L (38-126); Anion Gap 12 mmol/L (8-16); Aspartate Amino Transferase 27 U/L (14-36); Bilirubin,Total 0.4 mg/dL (0.2-1.3); Blood Urea Nitrogen 8 mg/dL (7-17); Calcium 8.5 mg/dL (8.4-10.2); Carbon Dioxide 16 mmol/L (22-30); Chloride 108 mmol/L (98-107); Estimated Glomerular Filt Rate > 60; Glucose 142 mg/dL (65-110); Potassium 3.3 mmol/L (3.4-5.0); Sodium 136 mmol/L (137-145); Uric Acid 6.7 mg/dL (2.5-7.5)
[2023-01-08 08:31] VITALS: BP 135/86; PULSE 80
[2023-01-08 08:58] LABS: HIV 1/2 Ab P24 Ag Result Negative (Negative)
[2023-01-08 15:51] LABS: Rapid Plasma Reagin Non-Reactive (NonReactive)
== END 2023-02-01 12:58 | disposition home or self-care (01) ==
LOC: ANHOBOP 07:27
PROVIDERS: PCP Nurse Practitioner; Visit Provider Obstetrics & Gynecology
DX: O24.419 Gestational diabetes mellitus in pregnancy, unspecified control (principal); Z3A.32 32 weeks gestation of pregnancy
CPT/HCPCS: 36415; 59025; 76819; 80053; 81001; 82570; 84156; 84550; 85027; 86592; 86703; G0432

== ENCOUNTER 2023-01-11 08:50 | Outpatient (CLI) | payer OTHER, SELFPAY ==
--- NOTE | ~2023-01-11 | US_ITS ---
EXAMINATION: US OB limited w BPP DATE: 01/11/2023 10:04 CDT INDICATION: Preeclampsia. Amniotic fluid index. TECHNIQUE: Real-time transabdominal obstetric ultrasound. FINDINGS: No prior studies for comparison. There is a single living fetus in vertex presentation. The placenta is posterior without placenta pr evia. cardiac activity and movement is noted with a heart rate of 158 beats per minute. Biophysical profile: breathin of 2 movement: 2 of 2 tone: 2 of 2 Amniotic flud pocket: 2 of 2 Total score: 8 of 8 PAPI is normal measuring 17.4 cm. IMPRESSION: 1. Single living intrauterine in vertex presentation. 2: Total biophysical profile score of 8/8. 3: Normal PAPI measures 17.4 cm. Reviewed, dictated and finalized at location A.
[2023-01-11 09:16] VITALS: BP 139/86; PULSE 86
[2023-01-11 09:23] LABS: Basophils Percent Auto 0.3 % (0.2-1.2); Eosinophils Percent Auto 0.3 % (0-4.4); Hemoglobin 12.3 g/dL (12.0-15.0); Immature Granulocyte Absolute 0.03 K/mm3 (0.00-0.031); Immature Granulocyte Percent A 0.3 % (0-0.5); Lymphocytes Absolute Auto 2.04 K/mm3 (0.9-3.2); Lymphocytes Percent Auto 20.3 % (18.3-44.2); Mean Corpuscular HGB Conc 34.2 g/dl (32-36); Mean Corpuscular Hemoglobin 28.1 pg (26-34); Mean Corpuscular Volume 82.2 fl (80-100); Monocytes Absolute Auto 0.7 K/mm3 (0.1-0.6); Monocytes Percent Auto 6.6 % (2.6-8.5); Neutrophils Absolute Auto 7.3 K/mm3 (1.3-6.7); Neutrophils Percent Auto 72.2 % (45.5-73.1); Platelet Count Result 269 k/mm3 (150-375); Red Blood Count 4.38 M/mm3 (4.2-5.4); Red Cell Distribution Width 14.3 % (11.5-14.5); White Blood Count 10.1 K/mm3 (4.5-10.0)
[2023-01-11 09:31] VITALS: BP 141/90; PULSE 76
[2023-01-11 09:32] LABS: Alanine Aminotransferase 38 U/L (6-35); Albumin Level 3.3 g/dL (3.5-5.1); Alkaline Phosphatase 128 U/L (38-126); Anion Gap 9 mmol/L (8-16); Aspartate Amino Transferase 22 U/L (14-36); Bilirubin,Total 0.3 mg/dL (0.2-1.3); Blood Urea Nitrogen 8 mg/dL (7-17); Carbon Dioxide 17 mmol/L (22-30); Chloride 110 mmol/L (98-107); Estimated Glomerular Filt Rate > 60; Glucose 101 mg/dL (65-110); Sodium 136 mmol/L (137-145); Uric Acid 6.4 mg/dL (2.5-7.5)
[2023-01-11 09:33] LABS: Creatinine Urine 68.1 mg/dL; Total Protein Urine Random 8 mg/dL; Ur Ttl Prot Creatinine Ratio 0.12 mg/mg (0-0.20)
[2023-01-11 10:16] VITALS: BP 137/85; PULSE 73
[2023-01-11 10:31] VITALS: BP 138/88; PULSE 71
[2023-01-11 10:46] VITALS: BP 136/84; PULSE 70
== END 2023-01-11 10:53 | disposition home or self-care (01) ==
LOC: ANHOBOP 08:57 → ANHOBPP 09:00
PROVIDERS: PCP Nurse Practitioner; Visit Provider Obstetrics & Gynecology
DX: O14.90 Unspecified pre-eclampsia, unspecified trimester (principal); Z3A.00 Weeks of gestation of pregnancy not specified
CPT/HCPCS: 36415; 59025; 76815; 76819; 80053; 82570; 84156; 84550; 85025; 99199

== ENCOUNTER 2023-01-11 17:54 | Inpatient (IN) | payer OTHER, SELFPAY ==
[2023-01-11] VITALS (62 sets, daily range): BP systolic 112–160; BP diastolic 70–107; PULSE 69–156; TEMP 36.6–36.8; O2SAT 96–100
--- NOTE | 2023-01-11 18:30 | LDADM ---
This patient, Karla Campbell, was admitted to Labor/Delivery/Recovery 105 on 01/11/23 at 17:54. Plans for labor, pain management and were discussed with patient. Patient/family oriented to hospital policies and general routines including ID bracelet, bed and alarms, visiting hours, pain management, procedures, bathroom and other care routines, personal items, smoking policy, room service/diet and guest tray routines, infant security routines, and visiting hours. Patient/Family are encouraged to report perceived risks to care and to ask questions if they do not understand what they are told or what they should do. See OBIX for further documentation.
[2023-01-11] MEDS: DINOPROSTONE 10 MG VAG INSERT VAGINAL (19:03)
[2023-01-11 19:19] LABS: Basophils Percent Auto 0.2 % (0.2-1.2); Eosinophils Absolute Auto 0.1 K/mm3 (0-0.3); Eosinophils Percent Auto 0.6 % (0-4.4); Hematocrit 36.8 % (37.0-47.0); Hemoglobin 12.3 g/dL (12.0-15.0); Immature Granulocyte Absolute 0.04 K/mm3 (0.00-0.031); Immature Granulocyte Percent A 0.5 % (0-0.5); Lymphocytes Absolute Auto 2.38 K/mm3 (0.9-3.2); Lymphocytes Percent Auto 27.7 % (18.3-44.2); Mean Corpuscular HGB Conc 33.4 g/dl (32-36); Mean Corpuscular Hemoglobin 27.6 pg (26-34); Mean Corpuscular Volume 82.5 fl (80-100); Mean Platelet Volume 10.4 fl (7.4-10.4); Monocytes Absolute Auto 0.5 K/mm3 (0.1-0.6); Monocytes Percent Auto 6.3 % (2.6-8.5); Neutrophils Absolute Auto 5.6 K/mm3 (1.3-6.7); Neutrophils Percent Auto 64.7 % (45.5-73.1); Platelet Count Result 312 k/mm3 (150-375); Red Blood Count 4.46 M/mm3 (4.2-5.4); Red Cell Distribution Width 14.3 % (11.5-14.5); White Blood Count 8.6 K/mm3 (4.5-10.0)
[2023-01-11 20:08] LABS: HIV 1/2 Ab P24 Ag Result Negative (Negative)
[2023-01-11 20:08] LABS: Glucose Point of Care 64 mg/dl (65-105)
[2023-01-11] MEDS: PANTOPRAZOLE 40 MG TABLET PO (20:08)
--- NOTE | 2023-01-11 20:25 | PHAR ---
RX [id number] HUMULIN N KWIK PEN [id number] UNITS/ML 12 UNITS SQ AT HS
[2023-01-11] MEDS: ONDANSETRON INJ 4 MG/2 ML VIAL IV PUSH (20:32)
[2023-01-11] MEDS: LACTATED RINGERS 1,000 ML 125 ML IV CONT ×3 (20:32→22:30)
--- NOTE | 2023-01-11 20:59 | WPDANESEPPF ---
Anes - Initial Pre Proc Eval Procedure: Labor Epidural Date/Time: 01/11/23 20:59 Surgeon: Lisandro Berumen MD Pre Op Diagnosis: Labor pain Pre Op Diagnosis: Induction of Labor Patient Data Age: 27 Gender: F Height: Weight: Last Vital Signs Pulse 85 01/11/23 20:01 BP 153/98 H 01/11/23 20:01 Pulse Ox 100 01/11/23 20:58 Allergies Allergy/AdvReac Type Severity Reaction Status Date / Time No Known Allergies Allergy Verified 01/07/23 07:37 Home Medications Medication Instructions Recorded Confirmed Type vitamins no.85-iron 10 1 cap PO DAILY #30 caps 08/17/22 01/07/23 Rx mg-folate no.1 1 mg-dha 200 mg capsule (Prenate Pixie) ondansetron 4 mg disintegrating 4 mg PO Q6H PRN nausea and 09/10/22 01/07/23 Rx tablet vomiting #30 tabs blood sugar diagnostic (OneTouch #100 ea 10/20/22 01/07/23 Rx Verio test strips) blood-glucose meter (OneTouch #1 ea 10/20/22 01/07/23 Rx Verio Flex Meter) lancets 33 gauge (Lite Touch #100 ea 10/20/22 01/07/23 Rx Lancets) sucralfate 1 gram tablet (Carafate) See Rx Instructions .Route 11/02/22 01/07/23 Rx .COMPLEX #120 tabs flash glucose sensor (FreeStyle #1 ea 11/11/22 01/07/23 Rx Josiane 2 Sensor kit) ferralet 90 See Rx Instructions .Route 11/19/22 01/07/23 Rx .COMPLEX #90 tabs glucagon 1 mg solution for 1 mg subcut Q20M PRN hypoglycemia 12/08/22 01/07/23 Rx injection (Glucagon Emergency Kit) #1 ea pantoprazole 40 mg tablet,delayed 40 mg PO BID #180 tabs 12/09/22 01/07/23 Rx release dextroamphetamine-amphetamine 10 10 mg PO DAILY 01/01/23 01/07/23 History mg tablet (Adderall) insulin NPH isoph U-100 human 100 12 unit subcut .hs 01/01/23 01/11/23 History unit/mL (3 mL) subcutaneous pen (Humulin N NPH U-100 Insulin KwikPen) Laboratory Tests 01/11/23 01/11/23 01/11/23 18:59 19:00 20:05 WBC 8.6 K/mm3 (4.5-10.0) RBC 4.46 M/mm3 (4.2-5.4) Hgb 12.3 g/dL (12.0-15.0) Hct 36.8 L % (37.0-47.0) MCV 82.5 fl (80-100) MCH 27.6 pg (26-34) MCHC 33.4 g/dl (32-36) RDW 14.3 % (11.5-14.5) Plt Count 312 k/mm3 (150-375) MPV 10.4 fl (7.4-10.4) Immature Gran % (Auto) 0.5 % (0-0.5) Neut % (Auto) 64.7 % (45.5-73.1) Lymph % (Auto) 27.7 % (18.3-44.2) [place] % (Auto) 6.3 % (2.6-8.5) Eos % (Auto) 0.6 % (0-4.4) Baso % (Auto) 0.2 % (0.2-1.2) Lymph # (Auto) 2.38 K/mm3 (0.9-3.2) [place] # (Auto) 0.5 K/mm3 (0.1-0.6) Eos # (Auto) 0.1 K/mm3 (0-0.3) Baso # (Auto) 0.0 K/mm3 (0.0-0.1) Abs Immat Gran (auto) 0.04 H K/mm3 (0.00-0.031) Absolute Neuts (auto) 5.6 K/mm3 (1.3-6.7) Absolute Nucleated RBC 0.0 K/mm3 (0.0-0.012) Nucleated RBC % 0.0 % (0.0-0.2) POC Capillary Glucose 64 L mg/dl (65-105) RPR Pending HIV 1&2 Ab/P24 Ag 4thGn Negative (Negative) Patient hx anesthesia problems: none Family hx anesthesia problems: none Results Review: All pre-operative results and documents have been reviewed as part of the pre-operative evaluation. [facility] Past Medical History Medical History Acid reflux Anxiety Attention Deficit Hyperactivity Disorder (ADHD) Depression Deviated nasal septum Dysphagia GERD (gastroesophageal reflux disease) Hematemesis Morbid obesity with BMI of 40.0-44.9, adult Nausea and vomiting during Non-cardiac chest pain Sleep disorder TMJ (temporomandibular joint disorder) Surgical History Surgical History History of cholecystectomy [place] teeth extracted Family History Family History Mother Hypertension
--- NOTE | 2023-01-11 22:14 | WPDANESEPN ---
Anes - Epidural Procedure Note Date/Time: 01/11/23 22:14 Consent: I have discussed with the patient/family/POA, the placement of an epidural catheter and the use of epidural narcotic/local anesthetic for labor analgesia and/or postoperative pain management, including associated potential risks, benefits, complications and side effects. I have discussed alternative methods of labor analgesia and/or postoperative pain management. The patient/family/POA, understand(s) and wish(es) to proceed with epidural narcotic/local anesthetic for labor analgesia and/or postoperative pain management. Time-Out: A pre-procedural Time-Out was completed immediately before starting the procedure and confirmed: Patient Identification, Site, Procedure, Patient Position and the Availability of Requisite Equipment. Epidural Insertion Note Patient position: sitting Skin prep: chlorhexidine and sterile drape Needle: 18g Tuohy-Schliff Catheter: 20g Unstyleted Technique: Loss of resistance. Level of insertion: L3/4 Catheter skin irwin (cm): 13 Length in epidural space (cm): 7 Skin anesthesia: lidocaine 1% Test dose: 1.5% Lidocaine with 1:[id number] Epi, negative for subarachnoid Inj and negative for intravascular Inj Time of test dose: 21:58 Observations: tolerated well Complications: none
[2023-01-11] MEDS: TERBUTALINE SULFATE 1 MG/ML VIAL 0.25 MG SUB-Q (23:06)
[2023-01-12] VITALS (261 sets, daily range): BP systolic 62–176; BP diastolic 25–144; PULSE 33–162; RESP 18–20; TEMP 36.8–37.3; O2SAT 89–100
[2023-01-12 00:09] LABS: Glucose Point of Care 129 mg/dl (65-105)
--- NOTE | 2023-01-12 02:46 | PC.NURSE ---
patient took her own insulin before the nurse got back into the room at 0000 after checking her BG. THis RN did not scan it in because I did not see her take the insulin.
[2023-01-12] MEDS: OXYTOCIN 30 UNITS/NS 500 ML 30 UNITS/500 ML BAG IV CONT (03:16)
[2023-01-12 04:47] LABS: Glucose Point of Care 97 mg/dl (65-105)
[2023-01-12] MEDS: LACTATED RINGERS 1,000 ML 125 ML IV CONT (05:29)
--- NOTE | 2023-01-12 08:25 | PM.IMHP ---
H&P: HPI History of Present Illness Date/Time: 01/12/23 08:25 Chief Complaint: Mild pre-eclampsia Narrative: She is a G1 at 37 2/7 by first trimester ultrasound. EDC January 31. course significant for mild preeclampsia she had an elevated blood pressure on 01 11 and the week prior to that. Prior to that she had a 24 hour urine was greater than 300 mg. She denies any severe headache scotomata or right upper quadrant pain. course also significant for insulin-requiring gestational diabetes controlled with p.m. insulin now at 20 units. She has had normal surveillance testing. Growth has been within normal limits her ultrasound. There is a reported elevated PAPI on a recent ultrasound though the formal report is not an though PAPI on 01/11 was normal. course also significant for GERD. She is on medications for this. Labs reviewed. GBS negative. Review of Systems Review of Systems: All systems reviewed & are unremarkable except as noted in HPI and below Constitutional: Constitutional: Reports no additional constitutional complaints and Denies headache(s) Eyes: Eyes: Denies spots in vision ENT: Reports system reviewed and no additional complaints, except as documented and Denies headache(s) Cardiovascular: Cardiovascular: Denies chest pain and Denies dyspnea Respiratory: Respiratory: Denies dyspnea Gastrointestinal: Gastrointestinal: Reports no additional gastrointestinal complaints Genitourinary: Genitourinary: Reports amenorrhea Musculoskeletal: Musculoskeletal: Reports no additional musculoskeletal complaints Integumentary/Breasts: Skin/Breast: Denies breast mass and Denies rash Neurologic: Denies headache(s) Psychiatric: Psychiatric: Reports no additional psychiatric complaints [facility] Past Medical History Medical History Acid reflux Anxiety Attention Deficit Hyperactivity Disorder (ADHD) Depression Deviated nasal septum Dysphagia GERD (gastroesophageal reflux disease) Hematemesis Morbid obesity with BMI of 40.0-44.9, adult Nausea and vomiting during Non-cardiac chest pain Sleep disorder TMJ (temporomandibular joint disorder) Surgical History Surgical History History of cholecystectomy [place] teeth extracted Family History Family History Mother Hypertension Father Diabetes mellitus Anxiety Mother Hypertension Grandparent Diabetes mellitus Hypertension Grandparent Heart disease Social History Social History Smoking status: Never smoker Second hand tobacco smoke exposure: No Alcohol intake: current Drinks per week: 1 Alcohol use details: not during Substance use: never Substance use type: does not use Lack of Transportation: No Lack of Food: Never True Current Housing: I Have Housing Concerned About Future Housing: No Difficulty Paying Gas/Electric Bills: No Difficulty Paying for Meds: No Currently Unemployed: No Education: Trade/Vocational Certificate Difficulty w/ Childcare or Family Care: No Living arrangements: with family Gender identity (if verbalized by the patient): Female Spiritual care concerns: No Meds Home Medications and Allergies Home Medications Medication Instructions Recorded Confirmed Type vitamins no.85-iron 10 1 cap PO DAILY #30 caps 08/17/22 01/07/23 Rx mg-folate no.1 1 mg-dha 200 mg capsule (Prenate Pixie) ondansetron 4 mg disintegrating 4 mg PO Q6H PRN nausea and 09/10/22 01/07/23 Rx tablet vomiting #30 tabs blood sugar diagnostic (OneTouch #100 ea 10/20/22 01/07/23 Rx Verio test strips) blood-glucose meter (OneTouch #1 ea 10/20/22 01/07/23 Rx Verio Flex Meter) lancets 33 gauge (Lite Touch #100 ea 05
[2023-01-12 08:26] LABS: Glucose Point of Care 72 mg/dl (65-105)
[2023-01-12 08:31] LABS: Rapid Plasma Reagin Non-Reactive (NonReactive)
--- NOTE | 2023-01-12 08:46 | PM.OBPNVD ---
OB - PN: Subj Subjective Date/time seen: 01/12/23 08:46 Interval history: fht 135, cat 2, cervix 6/70/-2 , mild caput. OB - PN: Obj Data Labs 01/11/23 18:59 Labs: Laboratory Results - last 24 hr 01/11/23 01/11/23 01/11/23 18:59 19:00 20:05 WBC 8.6 RBC 4.46 Hgb 12.3 Hct 36.8 L MCV 82.5 MCH 27.6 MCHC 33.4 RDW 14.3 Plt Count 312 MPV 10.4 Immature Gran % (Auto) 0.5 Neut % (Auto) 64.7 Lymph % (Auto) 27.7 [place] % (Auto) 6.3 Eos % (Auto) 0.6 Baso % (Auto) 0.2 Lymph # (Auto) 2.38 [place] # (Auto) 0.5 Eos # (Auto) 0.1 Baso # (Auto) 0.0 Abs Immat Gran (auto) 0.04 H Absolute Neuts (auto) 5.6 Absolute Nucleated RBC 0.0 Nucleated RBC % 0.0 POC Capillary Glucose 64 L RPR Non-reactive HIV 1&2 Ab/P24 Ag 4thGn Negative Blood Type A Positive Antibody Screen Negative 01/12/23 01/12/23 01/12/23 00:01 04:18 08:23 WBC RBC Hgb Hct MCV MCH MCHC RDW Plt Count MPV Immature Gran % (Auto) Neut % (Auto) Lymph % (Auto) [place] % (Auto) Eos % (Auto) Baso % (Auto) Lymph # (Auto) [place] # (Auto) Eos # (Auto) Baso # (Auto) Abs Immat Gran (auto) Absolute Neuts (auto) Absolute Nucleated RBC Nucleated RBC % POC Capillary Glucose 129 H 97 72 RPR HIV 1&2 Ab/P24 Ag 4thGn Blood Type Antibody Screen OB - PN A/P Time Spent With Patient Time: Total time spent is greater than 50% in coordination of care (as documented) at patient's floor/unit and/or counseling patient:
[2023-01-12 12:15] LABS: Glucose Point of Care 68 mg/dl (65-105)
[2023-01-12] MEDS: PANTOPRAZOLE 40 MG TABLET PO (12:19)
[2023-01-12 12:54] LABS: Glucose Point of Care 93 mg/dl (65-105)
--- NOTE | 2023-01-12 13:28 | PC.NURSE ---
1255 -Introductions were made and mother shared how she would like to feed her baby with . Encouraged mother to place [id number] until the first feeding if infant is stable and to wait on the weight to help reduce stress and improve latching. Education was shared on how to protect her milk supply with latching infant and/or using hand expression to remove milk if infant doesn't latch in the first hour. Resources provided with educational trifold for bonding and feeding infant. Parents voiced understanding of information and to call if there is a request for assistance.
[2023-01-12] MEDS: miSOPROStol 200 MCG TABLET 800 MCG (15:34)
[2023-01-12] MEDS: LIDOCAINE HCL 1% LOCAL INJ 20 ML VIAL (15:45)
[2023-01-12] MEDS: OXYTOCIN 30 UNITS/NS 500 ML 30 UNITS/500 ML BAG 125 UNITS IV CONT (16:00)
[2023-01-12] MEDS: BENZOCAINE 20% AER SPR (*SP) 56 GM CAN 1 SPRAY TOPICAL (18:28)
[2023-01-12] MEDS: WITCH HAZEL 40 PADS 1 PAD TOPICAL (18:28)
--- NOTE | 2023-01-12 18:55 | ADMGEN ---
This patient, Karla Campbell, was admitted to OB 2nd Floor Room 283-00. Patient/family oriented to hospital policies and general routines including ID bracelet, bed and alarms, visiting hours, pain management, procedures, bathroom and other care routines, personal items, smoking policy, room service/diet, and visiting hours. Information on how to activate the Rapid Response Team has been discussed. Patient/Family are encouraged to report perceived risks to care and to ask questions if they do not understand what they are told or what they should do.
[2023-01-13] MEDS: IBUPROFEN 600 MG TABLET PO (03:35)
[2023-01-13] MEDS: ACETAMINOPHEN 325 MG TABLET 650 MG PO (03:36)
[2023-01-13 04:15] VITALS: BP 140/89; PULSE 93; RESP 18; TEMP 37.2
[2023-01-13 05:19] LABS: Glucose Point of Care 119 mg/dl (65-105)
[2023-01-13 05:31] LABS: Hematocrit 30.3 % (37.0-47.0); Hemoglobin 9.8 g/dL (12.0-15.0)
--- NOTE | 2023-01-13 06:52 | PM.OBPRVD ---
OB - Delivery Note Procedure Delivery date: 01/12/23 Procedure: spontaneous vaginal delivery Events: Gestational Diabetes, Polyhydramnios and Preeclampsia w/o severe features Induction method: Per Cervidil Protocol Delivery augmentation: Rupture of Membranes and Pitocin Delivery monitor: External FHT and Internal Uterine Route of delivery: Laceration Description: Periurethral and Perineal - 2nd Degree Delivery repair: vicryl (3.0 vicryl) Specimen: Yes Quantitative Blood Loss (ml): 450 Anesthesia type: Epidural Disposition: Floor Complications: Mild shoulder dystocia Narrative: She was admitted on evening of 01/11 for MIL with cervidil due to diagnosis of mild pre-eclampsia w/o severe features. She progressed into active labor on cervidil and cervidil was removed. She had an epidural placed on request. She had SROM clear the morning of 01/12. She did have pitocin augmentation. IUPC placed. She progressed to active labor and complete. head was delivered and nose and mouth suctioned on the perineum with a bulb. The after coming shoulder did not deliver with gentle traction and modified gale, suprapubic pressure was applied and the shoulder was delivered and the rest of baby was delivered. Infant was vigorously crying and placed on maternal abdomen. Pitocin started. Placenta delivered with trailing membranes. On inspection of the placenta there was an area where it looked like membranes ended abruptly. The lower uterine segment was cleared of clots and membranes present. She did have uterine atony and the cavity was swept and membranes and small amount of placenta tissue removed. Tone improved but was intermittent boggy. She was given 800mcg cytotec and TOVA cleared of clot. Tone improved. She sustained a second degree perineal laceration repaired with 3.0 vicryl. There were some varicosities lateral that required several figure of eight sutures for hemostasis. She had a bilateral superior labia minora tear repaired with 3.0 vicryl, hemostasis noted. A packing was placed in vagina to compress the varicosity areas. Packing came out. Hemostasis noted. She tolerated procedure well. Baby Date of : 01/12/23 Time of : 15:05 Weeks of gestation at delivery: 37 gender: Female Weight (pounds): 7 Weight (ounces): 13 presentation: vertex position: Right Occiput Anterior Placenta delivery description: Spontaneous and Uterine Exploration Cord Vessel Description: 3 Vessels, Clamped/Cut and Delayed Cord Clamping score one minute: 9 score five minutes: 9 AMG Delivery Billing Delivery Delivery: Delivery Charge
--- NOTE | 2023-01-13 07:53 | WPDANLDPN2 ---
Anes-Prog Note L&D Date/Time: 01/13/23 07:53 Comfortable throughout: labor and delivery Neuraxial method: epidural Epidural/Spinal procedure site: clean & non-tender Neuro status: Neuro function grossly intact. Cardiovascular status: normal Respiratory status: normal Airway patency: baseline Mental status: baseline Post-Op hydration status: normal Vital Signs: Last Vital Signs Temp 99.0 F 01/13/23 04:15 Pulse 93 01/13/23 04:15 Resp 18 01/13/23 04:15 BP 140/89 01/13/23 04:15 Pulse Ox 98 01/12/23 16:14 O2 Del Method Room Air 01/12/23 18:55 Pain score (VAS): 0/10 I/O: Intake & Output 01/12/23 01/12/23 01/13/23 15:59 23:59 07:59 Output Total 100 Balance -100 Post-procedural complaints: none Patient feedback: Patient satisfied with anesthetic care.
[2023-01-13 08:50] VITALS: BP 131/83; PULSE 67; RESP 18; TEMP 36.3; O2SAT 99
[2023-01-13] MEDS: POLYSACCHARIDE IRON COMPLEX 150 MG CAPSULE PO ×2 (08:57→16:51)
[2023-01-13] MEDS: PANTOPRAZOLE 40 MG TABLET PO ×2 (08:58→22:49)
[2023-01-13] MEDS: DOCUSATE SODIUM 100 MG CAPSULE PO ×2 (08:58→16:51)
[2023-01-13] MEDS: MULTIVIT/MIN/PREN/FOL AC/IRON TABLET 1 TAB PO (08:58)
--- NOTE | 2023-01-13 10:49 | PC.NURSE ---
[id number] Infant was spitty for the [employer] assessment in the nursery. continued to spit up old formula, old blood and clearing fluid. The bassinet was changed. Consulted with patient to assess needs related to . Mother led conversation with her experience with feeding baby so far. Mother works well with her infant with encouragement. Reviewed working with infant, supporting breast and how to protect the nipples with an optimal deep latch, good positioning, and good hand washing. Encouraged skin to skin, responding to feeding cues, frequencies of feeding 8-12 times in 24 hours (approximately 2-3 hours), duration of feedings, milk production, intake/output feeding sheet and signs of adequate intake encouraging swallowing at the breast. Discussion with parents of how to protect the milk supply, pumping, hand expression, attempting to breastfeed and paced bottle feeding when choosing to supplement. Encouraged mother to stimulate with massaging touch rather than soothing for sleep. [id number] Reviewed positioning and alignment, supporting breast, off-centered (asymmetrical latch) and leading with the chin with big, open, wide gape. We attempted to latch to the left breast using the football positioning, the 'U-hold and the teacup hold . opens her mouth, then holds the nipple in the mouth. Occasionally, there is nippling with the tongue, light suckling with no effective . Infant is gaggy and spitting often. is spitting formula and old blood. Considered pumping to protect the milk supply, however, after nipple measuring we discovered we do not have the proper tools to pump at this time. Father of baby will order the correct flange size. Demonstrated teaching of hand expression with nipple stretching and mother demonstrated learning. Drops of colostrum were expressed. Nipple care reviewed with optimal latch, good positioning and using clean hands when feeding her infant and touching her breast. Resources used to facilitate learning were used from the visual handout, tool, mom and baby guide. Parents voiced understanding of the education shared, to call for assistance if the does not latch or if there is discomfort with . Reported to the primary RN.
--- NOTE | 2023-01-13 11:19 | PC.NURSE ---
1045 - Demonstrated to the parents paced bottle feeding. Father voiced understanding of the technique. Infant takes a few swallows, then lets it run out of her mouth. We discussed the clearing fluid that is possibly causing the less than 24 hour old to be reluctant to eat at this time. Reported to the Primary RN.
[2023-01-13 12:15] VITALS: BP 137/87; PULSE 80; RESP 16; TEMP 36.6; O2SAT 98
--- NOTE | 2023-01-13 15:01 | PC.NURSE ---
[id number] Consulted with patient to assess needs related to . Mother and father of baby are demonstrating a nonconventional position attempting to get infant to latch to the breast. Parents are eager to learn. Reviewed and parents acknowledge working with , supporting breast and how to protect the nipples with an optimal deep latch, good positioning, and good hand washing. Encouraged understanding the benefits of skin to skin, responding to feeding cues, frequencies of feeding 8-12 times in 24 hours (approximately 2-3 hours), duration of feedings, milk production, intake/output feeding sheet and signs of adequate intake. Reviewed positioning and alignment, supporting breast, off-centered (asymmetrical latch) and leading with the chin with big, open, wide gape. Infant opens at times, then holds the nipple in the mouth. Encouraged sandwiching the breast with fingers away from the latch assisting infant with a deep latch using a teacup method. Parents are supplementing with formula and mother is hand expressing to protect her milk supply. RN encouraged parents to take naps when able to get rest. Parents voiced understanding of the education shared, to call for assistance if the does not latch or if there is discomfort with . Reported to the primary RN.
[2023-01-13 15:30] VITALS: BP 138/97
--- NOTE | 2023-01-13 16:53 | PM.OBPNVD ---
OB - PN: Subj Subjective Date/time seen: 01/13/23 16:53 Interval history: Lochia decreasing no headache scotomata or RUQ pain. No leg pain. [place] baby status: doing well and nursing well feeding status: breast and bottle feeding OB - PN: Obj Data Labs 01/13/23 03:19 Labs: Laboratory Results - last 24 hr 01/13/23 01/13/23 03:19 05:17 Hgb 9.8 L Hct 30.3 L POC Capillary Glucose 119 H OB - PN A/P Assessment and Plan (1) Vaginal delivery: Code(s): O80 - Encounter for full-term uncomplicated delivery Status: Acute Assessment and Plan: Doing well. Routine care. (2) Mild pre-eclampsia: Code(s): O14.00 - Mild to moderate pre-eclampsia, unspecified trimester Status: Acute Assessment and Plan: No severe symptoms. BP labile in am improved in pm. Will continue to monitor. Plan day: 1 Plan: routine care Comments: Patient doing well. Time Spent With Patient Time: Total time spent is greater than 50% in coordination of care (as documented) at patient's floor/unit and/or counseling patient: Exam Psych: Affect: normal affect Other: Abd: fundus firm below umbilicus, nontender Perineum: healing Ext: nontender
[2023-01-13 19:59] VITALS: BP 154/99; PULSE 96; RESP 18; TEMP 36.7
--- NOTE | 2023-01-13 22:06 | PHAR ---
RX [id number] IDENTIFIED TO CONTAIN DRUG NAME: AMPHETAMINE SALT COMBO INGREDIENTS: AMPHETAMINE SALT COMBINATION -- 10 MG COLOR: BLUE SHAPE: OVAL IMPRINT: B 972; 1 0 ROUTE: ORAL ROUTE FORM: TABLET DIRECTIONS ON BOTTLE STATES 1 TAB TWICE DAILY 4 TO 6 HOURS APART
[2023-01-14 00:13] VITALS: BP 139/96; PULSE 109; RESP 18; TEMP 36.7
[2023-01-14] MEDS: ACETAMINOPHEN 325 MG TABLET 650 MG PO (04:26)
[2023-01-14] MEDS: IBUPROFEN 600 MG TABLET PO (04:30)
[2023-01-14 04:35] VITALS: BP 137/94; PULSE 89; RESP 18; TEMP 36.8
[2023-01-14 07:30] VITALS: BP 140/89; PULSE 88; RESP 16; TEMP 36.7; O2SAT 99
[2023-01-14] MEDS: POLYSACCHARIDE IRON COMPLEX 150 MG CAPSULE PO (08:08)
[2023-01-14] MEDS: PANTOPRAZOLE 40 MG TABLET PO (08:09)
[2023-01-14] MEDS: MULTIVIT/MIN/PREN/FOL AC/IRON TABLET 1 TAB PO (08:09)
[2023-01-14 08:49] VITALS: PULSE 88
[2023-01-14] MEDS: LABETALOL HCL 100 MG TABLET 200 MG PO (08:49)
[2023-01-14 11:50] VITALS: BP 125/81; PULSE 97; RESP 18; TEMP 36.9; O2SAT 100
[2023-01-14] MEDS: MEASLES,MUMPS,RUBELLA VACCINE 0.5 ML VIAL SUB-Q (12:59)
--- NOTE | 2023-01-14 13:01 | P.PNOB_ITS ---
OB - PN: Subj Subjective Date/time seen: 01/14/23 13:01 Interval history: Lochia decreasing no headache scotomata or RUQ pain. No leg pain. Patient comments: pain well controlled, tolerating diet and other (Decreasing lochia.) [place] baby status: doing well and nursing well feeding status: exclusively breast feeding OB - PN: Obj Data Labs 01/13/23 03:19 OB - PN A/P Assessment and Plan (1) Vaginal delivery: Code(s): O80 - Encounter for full-term uncomplicated delivery Status: Acute (2) Mild pre-eclampsia: Code(s): O14.00 - Mild to moderate pre-eclampsia, unspecified trimester Status: Acute Assessment and Plan: Blood pressures improved in Labetolol. No symptoms of severe pre-eclampsia. PIH precautions discussed. Plan day: 2 Plan: discharge home and other Comments: Patient doing well. Follow up one weeks. Discharge instructions provided. Time Spent With Patient Time: Total time spent is greater than 50% in coordination of care (as documented) at patient's floor/unit and/or counseling patient: Time with patient: less than 15 minutes Exam Psych: Affect: normal affect Other: Abd: fundus firm below umbilicus, nontender Ext: nontender
[2023-01-15 11:40] VITALS: BP 137/89; PULSE 78; RESP 18; TEMP 36.4; O2SAT 100
--- NOTE | 2023-01-28 09:17 | PM.OBDSVD ---
DS: Admitting Diagnosis Discharge Date 01/14/23 Admitting Diagnosis 1. Medical induction of labor 2. Preeclampsia without severe features 3. Insulin requiring gestational diabetes DS: Discharge Diagnosis Discharge Diagnosis (1) Vaginal delivery: Code(s): O80 - Encounter for full-term uncomplicated delivery Status: Acute (2) Gestational diabetes: Code(s): O24.419 - Gestational diabetes mellitus in , unspecified control Status: Acute (3) Mild pre-eclampsia: Code(s): O14.00 - Mild to moderate pre-eclampsia, unspecified trimester Status: Acute OB - DS: Summary Hospital Course Hospital Course: She was admitted for medical induction of labor due to mild preeclampsia. She had Cervidil started and assisted rupture membranes and Pitocin augmented. She had a spontaneous vaginal delivery. Her blood sugars were within normal during labor. Her blood sugars did increase and she was started on labetalol which did improve her blood pressures. She did not have any symptoms or features of severe preeclampsia. She was discharged home on day 2. She was ambulating well baby was doing well she was tolerating regular food. OB Procedures : Ultrasound OB Procedures Intrapartum: Spontaneous Vag Delivery OB Procedures: : None Peripartum Data Delivery Method: Natural Vaginal complications: none Status at Discharge Functional status at discharge: independent ambulation Time Spent with Patient Time attestation: Total time spent providing and/or coordinating discharge services: Exam Const: General: cooperative Orientation/consciousness: oriented to person, oriented to place and oriented to time HENMT: Face/Nose/Sinus: Normal external nose present Eyes: General: appearance normal, both eyes and all related structures Resp: Effort & Inspection: normal respiratory effort GI: Inspection: normal to inspection Skin: General skin exam: normal color Neuro: General: oriented to person, oriented to place and oriented to time Extrem: General: normal to inspection and no calf tenderness Psych: Appearance: grossly normal Mental Status: mental status grossly normal DS: Data Data Completed and Pending Completed studies during hospitalization: Pending at discharge 01/12/23 17:43 Surgical [PTH] Routine Discharge Plan Discharge Attending physician on discharge: Lisandro Berumen Consulting providers: Marion Levin; Rich Cohen Discharging Clinician: Lisandro Berumen Anticipated Discharge Date/Time: 01/14/23 12:59 Patient Disposition: Home, Self-Care Activity: may shower, no straining and pelvic rest Diet: regular Discharge Instructions: Education: Mom and Baby Guide Given to: Mother Follow-Up: Call your delivering provider's office for an appointment to be seen in: 1 Week Mom and baby should come to the [facility] for the follow-up appointment. Appointment Date/Time: January 15, 2023 at 11:00 am What to expect at your follow-up visit: Blood Pressure Check Physical Assessment Call [phone] if you are unable to keep your appointment time. BREAST CARE: * Wear a snug supportive bra. * For engorgement discomfort: Breast Feeding: * Apply warm moist washcloths * Express milk as needed to relieve engorgement * Wear loose clothing Bottle Feeding: * May apply ice packs * For sore nipples: * Identify correct latch-on * Apply warm moist washcloths before and after nursing * Air dry nipples after nursing * May apply Lansinoh cream to nipples PERINEAL CARE: * Until bleeding stops, use your aries bottle after urinating * Change your pad frequently throughout the day * You may take sitz baths several times a day (fill your bathtub with warm water and soak for 20 minutes.) Do NOT bathe in the water * No tub bath
== END 2023-01-14 13:36 | disposition home or self-care (01) | DRG 807 ==
LOC: ANHLDR 18:00 → ANHOB2 01-12 19:15
PROVIDERS: Admitting Provider Obstetrics & Gynecology; PCP Nurse Practitioner; Visit Provider Obstetrics & Gynecology
DX: O14.04 Mild to moderate pre-eclampsia, complicating childbirth (principal); Z37.0 Single live birth; O99.62 Diseases of the digestive system complicating childbirth; K21.9 Gastro-esophageal reflux disease without esophagitis; O99.214 Obesity complicating childbirth; E66.01 Morbid (severe) obesity due to excess calories; O40.3XX0 Polyhydramnios, third trimester, not applicable or unspecified; O70.1 Second degree perineal laceration during delivery; O66.0 Obstructed labor due to shoulder dystocia; O24.424 Gestational diabetes mellitus in childbirth, insulin controlled; Z3A.37 37 weeks gestation of pregnancy; Z90.49 Acquired absence of other specified parts of digestive tract
CPT/HCPCS: 36415; 59025; 76815; 76819; 80053; 82570; 82948; 84156; 84550; 85014; 85018; 85025; 85027; 86592; 86703; 86850; 86900; 86901; 88307; 90710; 99199; A9270; G0432; J2405; J2590; J2795; J3105; J7120

== ENCOUNTER 2023-02-03 13:51 | Outpatient (CLI) | payer OTHER, SELFPAY ==
[2023-02-03] VITALS (9 sets, daily range): BP systolic 108–132; BP diastolic 65–75; PULSE 74–84; BMI 37.4
--- NOTE | 2023-02-03 14:46 | PC.NURSE ---
Dr. Berumen returned page and informed of pt's arrival with c/o headache since yesterday morning. Describes headache as a stabbing sensation on both sides of head- currently rates a 4. Pt last took Motrin for pain yesterday. No visual disturbance at present, but reports stars in vision yesterday. No epigastric/RUQ pain. No edema. DTR's 1+ and no clonus. Pt had her Labetalol at 1300 today. Informed of current BP's. Orders received for labs.
[2023-02-03 14:55] LABS: Basophils Percent Auto 0.6 % (0.2-1.2); Eosinophils Absolute Auto 0.1 K/mm3 (0-0.3); Eosinophils Percent Auto 1.9 % (0-4.4); Hematocrit 32.5 % (37.0-47.0); Hemoglobin 10.5 g/dL (12.0-15.0); Immature Granulocyte Absolute 0.01 K/mm3 (0.00-0.031); Immature Granulocyte Percent A 0.2 % (0-0.5); Lymphocytes Percent Auto 42.6 % (18.3-44.2); Mean Corpuscular HGB Conc 32.3 g/dl (32-36); Mean Corpuscular Hemoglobin 26.9 pg (26-34); Mean Corpuscular Volume 83.3 fl (80-100); Mean Platelet Volume 8.5 fl (7.4-10.4); Monocytes Absolute Auto 0.6 K/mm3 (0.1-0.6); Monocytes Percent Auto 10.6 % (2.6-8.5); Neutrophils Absolute Auto 2.4 K/mm3 (1.3-6.7); Neutrophils Percent Auto 44.1 % (45.5-73.1); Platelet Count Result 398 k/mm3 (150-375); White Blood Count 5.4 K/mm3 (4.5-10.0)
[2023-02-03 15:08] LABS: Alanine Aminotransferase 32 U/L (6-35); Albumin Level 4.2 g/dL (3.5-5.1); Alkaline Phosphatase 65 U/L (38-126); Anion Gap 6 mmol/L (8-16); Aspartate Amino Transferase 24 U/L (14-36); Bilirubin,Total 0.5 mg/dL (0.2-1.3); Blood Urea Nitrogen 10 mg/dL (7-17); Calcium 9.2 mg/dL (8.4-10.2); Carbon Dioxide 26 mmol/L (22-30); Chloride 107 mmol/L (98-107); Estimated Glomerular Filt Rate > 60; Glucose 94 mg/dL (65-110); Sodium 139 mmol/L (137-145)
[2023-02-03] MEDS: ACETAMINOPHEN 325 MG TABLET 650 MG PO (16:06)
--- NOTE | 2023-02-03 16:10 | PC.NURSE ---
Dr. Berumen updated on BP's and lab results. Orders received to discharge to home. Pt may take Benadryl 25 mg by mouth every 4 hrs along with Tylenol for her headache.
== END 2023-02-03 16:18 | disposition home or self-care (01) ==
LOC: ANHOBOP 13:57 → ANHOBPP 13:58
PROVIDERS: PCP Nurse Practitioner; Visit Provider Obstetrics & Gynecology
DX: O13.5 Gestational [pregnancy-induced] hypertension without significant proteinuria, complicating the puerperium (principal)
CPT/HCPCS: 36415; 80053; 84550; 85025; 99199; A9270

== ENCOUNTER 2023-02-26 08:39 | Outpatient (CLI) | payer OTHER, SELFPAY ==
[2023-02-26 09:50] LABS: Glucose Fasting 91 mg/dL
[2023-02-26 11:46] LABS: Glucose 1 Hour 133 mg/dL
[2023-02-26 12:45] LABS: Glucose 2 Hour 113 mg/dL
== END 2023-02-26 08:40 | disposition home or self-care (01) ==
PROVIDERS: PCP Nurse Practitioner; Visit Provider Obstetrics & Gynecology
DX: O24.419 Gestational diabetes mellitus in pregnancy, unspecified control (principal); Z3A.00 Weeks of gestation of pregnancy not specified
CPT/HCPCS: 36415; 82951